=== PATIENT | male | born 1995 | race Caucasian/White ===

== ENCOUNTER → 2016-03-14 | Outpatient (CLI) | payer MEDICAID ==
[~2016-03-14] MED LIST: CATA0.1T; CEFT500T; DEPA250T3; DEPA500T; DEPA500T2; QUET20XRTB; [UNRECOGNIZED DRUG - OTHER]
[2016-03-14 09:34] LABS: BASO % 0.3 % (0.0-1.0); EOS # 0.1 K/mm3 (0.0-0.50); EOS % 1.3 % (0.0-3.0); LARGE UNSTAINED CELL # 0.1 K/mm3 (0.0-0.4); LARGE UNSTAINED CELL % 2.3 % (0.0-4.0); LYMPH # 1.7 K/mm3 (1.5-6.5); LYMPH % 32.9 % (24.0-44.0); MEAN CORPUSCULAR HEMOGLOBIN 32.9 pg (27.0-33.0); MEAN CORPUSCULAR HGB CONC 35.6 g/dl (32.0-36.5); MEAN CORPUSCULAR VOLUME 92.4 fl (80.0-96.0); MONO # 0.5 K/mm3 (0.0-0.8); MONO % 9.4 % (0.0-5.0); NEUTROPHILS # 2.8 K/mm3 (1.8-7.7); PLATELET COUNT, AUTOMATED 223 k/mm3 (150-450); RED CELL DISTRIBUTION WIDTH 12.4 % (11.5-14.5); WHITE BLOOD COUNT 5.2 K/mm3 (4.0-10.0)
[2016-03-14 09:43] LABS: ALBUMIN 3.9 GM/DL (3.2-5.2); ALBUMIN/GLOBULIN RATIO 1.08 (1.00-1.93); ALKALINE PHOSPHATASE 71 U/L (45-117); ALT/SGPT 20 U/L (12-78); ANION GAP 9 MEQ/L (8-16); AST/SGOT 12 U/L (15-37); BILIRUBIN,TOTAL 0.4 MG/DL (0.2-1.0); BLOOD UREA NITROGEN 15 MG/DL (7-18); CALCIUM LEVEL 9.4 MG/DL (8.5-10.1); CARBON DIOXIDE LEVEL 28 MEQ/L (21-32); CHLORIDE LEVEL 105 MEQ/L (98-107); CREATININE FOR GFR 0.74 MG/DL (0.70-1.30); GLOMERULAR FILTRATION RATE > 60.0 (>60); GLUCOSE, FASTING 91 MG/DL (70-105); POTASSIUM SERUM 4.5 MEQ/L (3.5-5.1); SODIUM LEVEL 142 MEQ/L (136-145); TOTAL PROTEIN 7.5 GM/DL (6.4-8.2)
== END ==
LOC: M WUC 08:07
PROVIDERS: ATTEND Physician Assistant
DX: G40.909 Epilepsy, unspecified, not intractable, without status epilepticus (principal)

== ENCOUNTER 2016-05-20 12:25 | Emergency (ER) | payer OTHER, MEDICAID ==
[~2016-05-20] VITALS: Ht 172.7 cm; Wt 111.1 kg
[2016-05-20 12:26] VITALS: BP 148/66
== END 2016-05-20 13:25 | disposition home or self-care (01) ==
LOC: M ED 13:25
DX: Z00.00 Encounter for general adult medical examination without abnormal findings (principal)

== ENCOUNTER → 2016-07-14 | Outpatient (CLI) | payer MEDICAID, OTHER ==
[2016-07-14 07:59] LABS: ALBUMIN 3.5 GM/DL (3.2-5.2); ALKALINE PHOSPHATASE 71 U/L (45-117); ALT/SGPT 21 U/L (12-78); ANION GAP 9 MEQ/L (8-16); AST/SGOT 12 U/L (15-37); BILIRUBIN,TOTAL 0.2 MG/DL (0.2-1.0); BLOOD UREA NITROGEN 16 MG/DL (7-18); CALCIUM LEVEL 7.8 MG/DL (8.5-10.1); CARBON DIOXIDE LEVEL 23 MEQ/L (21-32); CHLORIDE LEVEL 109 MEQ/L (98-107); CREATININE FOR GFR 0.74 MG/DL (0.70-1.30); GLOMERULAR FILTRATION RATE > 60.0 (>60); GLUCOSE, FASTING 96 MG/DL (70-105); POTASSIUM SERUM 4.1 MEQ/L (3.5-5.1); SODIUM LEVEL 141 MEQ/L (136-145)
== END ==
LOC: M LAB 06:47
PROVIDERS: ATTEND Physician Assistant
DX: G40.909 Epilepsy, unspecified, not intractable, without status epilepticus (principal)

== ENCOUNTER 2016-10-01 19:01 | Emergency (ER) | payer MEDICAID ==
[~2016-10-01] VITALS: Ht 172.7 cm; Wt 113.5 kg
[2016-10-01 19:02] VITALS: BP 151/63
[2016-10-01] MEDS ORDERED: COLA100C5 PO (19:15)
[2016-10-01] MEDS ORDERED: CLAR10CA3 PO (19:15)
[2016-10-01] MEDS ORDERED: RISP2TAB32 PO (19:15)
[2016-10-01] MEDS ORDERED: PROAAER10 INH (19:15)
[2016-10-01] MEDS ORDERED: BENZ-52 PO (19:15)
[2016-10-01] MEDS ORDERED: [UNRECOGNIZED DRUG - CODE] MT (19:56)
[2016-10-01] MEDS ORDERED: NAPR500T PO (19:56)
== END 2016-10-01 20:24 | disposition home or self-care (01) ==
LOC: M ED 19:01
DX: S02.5XXA Fracture of tooth (traumatic), initial encounter for closed fracture (principal); G40.909 Epilepsy, unspecified, not intractable, without status epilepticus; J45.909 Unspecified asthma, uncomplicated; Y04.2XXA Assault by strike against or bumped into by another person, initial encounter; Y92.89 Other specified places as the place of occurrence of the external cause; Y99.9 Unspecified external cause status; Y93.9 Activity, unspecified; Z79.899 Other long term (current) drug therapy

== ENCOUNTER → 2016-10-06 | Outpatient (REF) | payer MEDICAID ==
[~2016-10-06] MED LIST changes: +BENZ-52 PO; +CLAR10CA3 PO; +COLA100C5 PO; +NAPR500T PO; +PROAAER10 INH; +RISP2TAB32 PO; +[UNRECOGNIZED DRUG - CODE] MT
== END ==
LOC: M LAB REF 13:07
PROVIDERS: ATTEND Physician Assistant
DX: N39.0 Urinary tract infection, site not specified (principal)

== ENCOUNTER → 2017-05-09 | Outpatient (REF) | payer MEDICAID ==
[2017-05-09 18:08] LABS: APPEARANCE, URINE HAZY (CLEAR); BACTERIA, URINE AUTO 1+ (NEGATIVE); BILIRUBIN, URINE AUTO NEGATIVE (NEGATIVE); BLOOD, URINE BLOOD 3+ (NEGATIVE); COLOR, URINE YELLOW (YELLOW); GLUCOSE, URINE (UA) AUTO NEGATIVE (NEGATIVE); KETONE, URINE AUTO NEGATIVE (NEGATIVE); LEUKOCYTE ESTERASE, URINE AUTO 1+ (NEGATIVE); MUCUS, URINE SMALL (NEGATIVE); NITRITE, URINE AUTO NEGATIVE (NEGATIVE); PROTEIN, URINE AUTO 1+ mg/dL (NEGATIVE); RBC, URINE AUTO TNTC /HPF (0-3); SPECIFIC GRAVITY URINE AUTO 1.018 (1.002-1.035); SQUAMOUS EPITHELIAL CELL UR AU 0 /HPF (0-6); UROBILINOGEN, URINE AUTO 0.2 mg/dL (0.0-2.0); WBC, URINE AUTO 57 /HPF (0-3)
== END ==
LOC: M LAB REF 17:09
DX: N39.0 Urinary tract infection, site not specified (principal)

== ENCOUNTER → 2017-05-10 | Outpatient (CLI) | payer MEDICAID ==
[2017-05-10 14:50] LABS: ALBUMIN/GLOBULIN RATIO 1.18 (1.00-1.93); ALKALINE PHOSPHATASE 63 U/L (45-117); ALT/SGPT 25 U/L (12-78); ANION GAP 11 MEQ/L (8-16); AST/SGOT 18 U/L (7-37); BILIRUBIN,TOTAL 0.4 MG/DL (0.2-1.0); BLOOD UREA NITROGEN 17 MG/DL (7-18); CALCIUM LEVEL 8.2 MG/DL (8.5-10.1); CARBON DIOXIDE LEVEL 24 MEQ/L (21-32); CHLORIDE LEVEL 105 MEQ/L (98-107); CHOLESTEROL LEVEL 157 MG/DL (<200); CHOLESTEROL RISK RATIO 4.757 (<5); CREATININE FOR GFR 0.65 MG/DL (0.70-1.30); FREE T4 0.89 NG/DL (0.76-1.46); GLOMERULAR FILTRATION RATE > 60.0 (>60); GLUCOSE, FASTING 88 MG/DL (70-100); HDL CHOLESTEROL 33 MG/DL (>40); LDL CHOLESTEROL 96.2 MG/DL (<100); NON-HDL-C 124 MG/DL; POTASSIUM SERUM 4.1 MEQ/L (3.5-5.1); SODIUM LEVEL 140 MEQ/L (136-145); TOTAL PROTEIN 7.4 GM/DL (6.4-8.2); TRIGLYCERIDES LEVEL 139 MG/DL (<150)
== END ==
LOC: M SMT 08:06
DX: Z13.220 Encounter for screening for lipoid disorders (principal); E66.01 Morbid (severe) obesity due to excess calories

== ENCOUNTER → 2017-05-23 | Outpatient (REF) | payer MEDICAID ==
[2017-05-23 11:44] LABS: APPEARANCE, URINE CLEAR (CLEAR); BACTERIA, URINE AUTO NEGATIVE (NEGATIVE); BILIRUBIN, URINE AUTO NEGATIVE (NEGATIVE); BLOOD, URINE BLOOD NEGATIVE (NEGATIVE); COLOR, URINE STRAW (YELLOW); GLUCOSE, URINE (UA) AUTO NEGATIVE (NEGATIVE); HEMOGLOBIN 14.6 g/dl (14.0-18.0); KETONE, URINE AUTO NEGATIVE (NEGATIVE); LEUKOCYTE ESTERASE, URINE AUTO NEGATIVE (NEGATIVE); MEAN CORPUSCULAR HEMOGLOBIN 31.5 pg (27.0-33.0); MEAN CORPUSCULAR VOLUME 92.7 fl (80.0-96.0); NITRITE, URINE AUTO NEGATIVE (NEGATIVE); PLATELET COUNT, AUTOMATED 191 10^3/uL (150-450); PROTEIN, URINE AUTO NEGATIVE (NEGATIVE); RBC, URINE AUTO 0 /HPF (0-3); RED BLOOD COUNT 4.64 10^6/uL (4.30-6.10); RED CELL DISTRIBUTION WIDTH 12.5 % (11.5-14.5); SPECIFIC GRAVITY URINE AUTO 1.006 (1.002-1.035); SQUAMOUS EPITHELIAL CELL UR AU 0 /HPF (0-6); UROBILINOGEN, URINE AUTO 0.2 mg/dL (0.0-2.0); WBC, URINE AUTO 1 /HPF (0-3); WHITE BLOOD COUNT 6.3 10^3/uL (4.0-10.0)
[2017-05-23 12:06] LABS: VALPROIC ACID (DEPAKOTE) 101.3 UG/ML (50.0-100.0)
== END ==
LOC: M SFHCPLAZ 08:09
DX: Z51.81 Encounter for therapeutic drug level monitoring (principal); Z79.899 Other long term (current) drug therapy; R31.0 Gross hematuria

== ENCOUNTER → 2017-05-30 | Outpatient (CLI) | payer MEDICAID | LOC: M LAB 06:24 | DX: Z51.81 Encounter for therapeutic drug level monitoring (principal); Z79.899 Other long term (current) drug therapy | CPT/HCPCS: 80164 ==

== ENCOUNTER 2017-08-06 21:07 | Emergency (ER) | payer MEDICAID ==
[2017-08-06 21:56] LABS: BASO % 0.2 % (0.0-1.0); EOS # 0.1 10^3/uL (0.0-0.50); EOS % 1.7 % (0.0-3.0); HEMATOCRIT 38.3 % (42.0-52.0); HEMOGLOBIN 13.5 g/dl (13.5-17.5); IMMATURE GRANULOCYTE % 0.2 % (0-3.0); LYMPH # 2.6 10^3/uL (1.5-6.5); LYMPH % 32.2 % (24.0-44.0); MEAN CORPUSCULAR HEMOGLOBIN 32.4 pg (27.0-33.0); MEAN CORPUSCULAR HGB CONC 35.2 g/dl (32.0-36.5); MEAN CORPUSCULAR VOLUME 91.8 fl (80.0-96.0); MONO # 0.8 10^3/uL (0.0-0.8); NEUTROPHILS # 4.5 10^3/uL (1.8-7.7); NEUTROPHILS % 55.7 % (36.0-66.0); PLATELET COUNT, AUTOMATED 209 10^3/uL (150-450); RED BLOOD COUNT 4.17 10^6/uL (4.30-6.10); RED CELL DISTRIBUTION WIDTH 12.3 % (11.5-14.5); WHITE BLOOD COUNT 8.1 10^3/uL (4.0-10.0)
[2017-08-06 22:08] LABS: ALBUMIN 3.8 GM/DL (3.2-5.2); ALBUMIN/GLOBULIN RATIO 1.15 (1.00-1.93); ALKALINE PHOSPHATASE 65 U/L (45-117); ALT/SGPT 23 U/L (12-78); ANION GAP 9 MEQ/L (8-16); AST/SGOT 18 U/L (7-37); BILIRUBIN,DIRECT < 0.1 MG/DL (0.0-0.2); BILIRUBIN,TOTAL 0.3 MG/DL (0.2-1.0); BLOOD UREA NITROGEN 11 MG/DL (7-18); CALCIUM LEVEL 8.5 MG/DL (8.5-10.1); CARBON DIOXIDE LEVEL 27 MEQ/L (21-32); CHLORIDE LEVEL 105 MEQ/L (98-107); CREATININE FOR GFR 0.89 MG/DL (0.70-1.30); GLOMERULAR FILTRATION RATE > 60.0 (>60); GLUCOSE, FASTING 83 MG/DL (70-100); PHOSPHORUS LEVEL 3.7 MG/DL (2.5-4.9); POTASSIUM SERUM 3.5 MEQ/L (3.5-5.1); SODIUM LEVEL 141 MEQ/L (136-145); TOTAL PROTEIN 7.1 GM/DL (6.4-8.2); VALPROIC ACID (DEPAKOTE) 89.5 UG/ML (50.0-100.0)
[2017-08-06] MEDS: ACETAMINOPHEN TAB 650MG DOSE (2X325MG) PO (22:35)
[2017-08-06 22:45] LABS: AMORPHOUS SEDIMENT RFX SMALL (NEGATIVE); KETONE, URINE AUTO RFX NEGATIVE (NEGATIVE); LEUKOCYTE ESTERASE UR AUTO RFX NEGATIVE (NEGATIVE); NITRITE, URINE AUTO RFX NEGATIVE (NEGATIVE); RBC, URINE AUTO RFX 0 /HPF (0-3); SPECIFIC GRAVITY UR AUTO RFX 1.013 (1.002-1.035); SQUAM EPITHELIAL CELL UR AURFX 0 /HPF (0-6); WBC, URINE AUTO RFX 0 /HPF (0-3)
[2017-08-06 23:08] LABS: AMPHETAMINES LEVEL URINE NEGATIVE (NEGATIVE); BARBITURATES URINE NEGATIVE (NEGATIVE); BENZODIAZEPINES URINE NEGATIVE (NEGATIVE); CANNABINOIDS URINE NEGATIVE (NEGATIVE); COCAINE METABOLITE URINE NEGATIVE (NEGATIVE); METHADONE URINE NEGATIVE (NEGATIVE); OPIATES URINE NEGATIVE (NEGATIVE); PHENCYCLIDINE URINE NEGATIVE (NEGATIVE)
== END 2017-08-06 23:43 | disposition home or self-care (01) ==
LOC: M ED 21:07
DX: G40.909 Epilepsy, unspecified, not intractable, without status epilepticus (principal); J45.909 Unspecified asthma, uncomplicated; F79 Unspecified intellectual disabilities; F63.9 Impulse disorder, unspecified; F84.9 Pervasive developmental disorder, unspecified; Z79.899 Other long term (current) drug therapy
CPT/HCPCS: 83735

== ENCOUNTER → 2017-08-17 | Outpatient (CLI) | payer MEDICAID ==
[2017-08-17 08:33] LABS: VALPROIC ACID (DEPAKOTE) 97.5 UG/ML (50.0-100.0)
== END ==
LOC: M LAB 07:19
DX: Z79.899 Other long term (current) drug therapy (principal)
CPT/HCPCS: 80164

== ENCOUNTER 2018-08-07 17:37 | Emergency (ER) | payer MEDICAID ==
[~2018-08-07] VITALS: Ht 170.2 cm; Wt 121.8 kg
[~2018-08-07 17:37] MED LIST changes: +NAPR-837 PO; -NAPR500T PO; -QUET20XRTB; +SERO200T43
[2018-08-07 18:09] VITALS: BP 140/76
[2018-08-07] MEDS ORDERED: DIVA250T7 PO ×2 (18:33)
[2018-08-07 18:36] LABS: MEAN CORPUSCULAR HEMOGLOBIN 31.7 pg (27.0-33.0); MEAN CORPUSCULAR VOLUME 90.5 fl (80.0-96.0); PLATELET COUNT, AUTOMATED 202 10^3/uL (150-450); RED BLOOD COUNT 4.42 10^6/uL (4.30-6.10); WHITE BLOOD COUNT 7.4 10^3/uL (4.0-10.0)
[2018-08-07] MEDS ORDERED: CALC1TAB63 PO (18:38)
[2018-08-07] MEDS ORDERED: [UNRECOGNIZED DRUG - CODE] TOP (18:38)
[2018-08-07] MEDS ORDERED: TOPI25TA10 PO (18:38)
[2018-08-07] MEDS ORDERED: RISP3TAB3 PO (18:38)
[2018-08-07] MEDS ORDERED: KP K0.02 OU (18:38)
[2018-08-07] MEDS ORDERED: CONC54TA4 PO (18:38)
[2018-08-07 18:59] LABS: ACETAMINOPHEN LEVEL < 2.0 UG/ML (10.0-30.0); ALBUMIN 3.7 GM/DL (3.2-5.2); ALT/SGPT 26 U/L (12-78); BILIRUBIN,DIRECT < 0.1 MG/DL (0.0-0.2); BILIRUBIN,TOTAL 0.2 MG/DL (0.2-1.0); BLOOD UREA NITROGEN 11 MG/DL (7-18); CALCIUM LEVEL 8.2 MG/DL (8.5-10.1); CARBON DIOXIDE LEVEL 23 MEQ/L (21-32); CHLORIDE LEVEL 106 MEQ/L (98-107); CREATININE FOR GFR 0.82 MG/DL (0.70-1.30); ETHYL ALCOHOL (ETHANOL) < 0.003 % (0.000-0.010); GLOMERULAR FILTRATION RATE > 60.0 (>60); GLUCOSE, FASTING 104 MG/DL (70-100); POTASSIUM SERUM 3.7 MEQ/L (3.5-5.1); SALICYLATE LEVEL < 1.7 MG/DL (5.0-30.0); SODIUM LEVEL 139 MEQ/L (136-145); TOTAL PROTEIN 7.5 GM/DL (6.4-8.2)
--- NOTE | 2018-08-07 19:15 | REP ---
RIGHT HAND, FOUR VIEWS: There is no evidence of an acute fracture, dislocation or intrinsic bone disease. IMPRESSION: No fracture or dislocation. Electronically Signed by Osmany Reyna MD 08/12/2018 08:27 A
== END 2018-08-07 19:12 | disposition home or self-care (01) ==
LOC: M ED 17:37
DX: F43.20 Adjustment disorder, unspecified (principal); S60.221A Contusion of right hand, initial encounter; W22.8XXA Striking against or struck by other objects, initial encounter; Y92.89 Other specified places as the place of occurrence of the external cause; J45.909 Unspecified asthma, uncomplicated; F91.3 Oppositional defiant disorder; R56.9 Unspecified convulsions; R41.89 Other symptoms and signs involving cognitive functions and awareness
CPT/HCPCS: 36415; 73130; 80048; 80076; 84443; 85027; 99283; G0480

== ENCOUNTER → 2018-08-08 | Outpatient (CLI) | payer MEDICAID ==
[~2018-08-08] MED LIST changes: +CALC1TAB63 PO; +CONC54TA4 PO; +DIVA250T7 PO; +KP K0.02 OU; +RISP3TAB3 PO; +TOPI25TA10 PO; +[UNRECOGNIZED DRUG - CODE] TOP
[2018-08-08 07:57] LABS: BASO % 0.6 % (0.0-1.0); EOS # 0.1 10^3/uL (0.0-0.50); EOS % 1.4 % (0.0-3.0); HEMATOCRIT 41.9 % (42.0-52.0); HEMOGLOBIN 14.4 g/dl (13.5-17.5); LYMPH # 2.3 10^3/uL (1.5-6.5); MEAN CORPUSCULAR HEMOGLOBIN 32.8 pg (27.0-33.0); MEAN CORPUSCULAR HGB CONC 34.4 g/dl (32.0-36.5); MEAN CORPUSCULAR VOLUME 95.4 fl (80.0-96.0); MONO # 0.9 10^3/uL (0.0-0.8); MONO % 12.6 % (0.0-5.0); NEUTROPHILS # 3.6 10^3/uL (1.8-7.7); PLATELET COUNT, AUTOMATED 200 10^3/uL (150-450); RED BLOOD COUNT 4.39 10^6/uL (4.30-6.10); WHITE BLOOD COUNT 6.9 10^3/uL (4.0-10.0)
[2018-08-08 08:16] LABS: ALBUMIN 3.7 GM/DL (3.2-5.2); ALT/SGPT 24 U/L (12-78); BILIRUBIN,TOTAL 0.3 MG/DL (0.2-1.0); BLOOD UREA NITROGEN 12 MG/DL (7-18); CALCIUM LEVEL 8.9 MG/DL (8.5-10.1); CARBON DIOXIDE LEVEL 29 MEQ/L (21-32); CHLORIDE LEVEL 105 MEQ/L (98-107); CREATININE FOR GFR 0.81 MG/DL (0.70-1.30); GLOMERULAR FILTRATION RATE > 60.0 (>60); GLUCOSE, FASTING 87 MG/DL (70-100); SODIUM LEVEL 140 MEQ/L (136-145); VALPROIC ACID (DEPAKOTE) 77.9 UG/ML (50.0-100.0)
== END ==
LOC: M LAB 07:07
DX: G40.909 Epilepsy, unspecified, not intractable, without status epilepticus (principal)

== ENCOUNTER → 2018-11-19 | Outpatient (REF) | payer MEDICAID ==
[~2018-11-19] MED LIST changes: +KETO0.022 OU; -KP K0.02 OU; +PANT40TA3 PO; +TUMS500C PO
[2018-11-19 10:32] LABS: ALBUMIN 3.9 GM/DL (3.2-5.2); ALT/SGPT 29 U/L (12-78); BILIRUBIN,TOTAL 0.4 MG/DL (0.2-1.0); BLOOD UREA NITROGEN 14 MG/DL (7-18); CALCIUM LEVEL 9.6 MG/DL (8.5-10.1); CARBON DIOXIDE LEVEL 27 MEQ/L (21-32); CHLORIDE LEVEL 103 MEQ/L (98-107); CREATININE FOR GFR 0.85 MG/DL (0.70-1.30); GLOMERULAR FILTRATION RATE > 60.0 (>60); GLUCOSE, FASTING 95 MG/DL (70-100); POTASSIUM SERUM 4.3 MEQ/L (3.5-5.1); SODIUM LEVEL 140 MEQ/L (136-145); TOTAL PROTEIN 7.2 GM/DL (6.4-8.2)
== END ==
LOC: M SFHCPLAZ 08:04
PROVIDERS: ATTEND Nurse Practitioner Family
DX: G40.909 Epilepsy, unspecified, not intractable, without status epilepticus (principal)

== ENCOUNTER 2018-12-29 12:19 | Emergency (ER) | payer MEDICAID ==
[~2018-12-29] VITALS: Ht 160 cm; Wt 121.0 kg
[~2018-12-29 12:19] MED LIST changes: -PANT40TA3 PO; -TUMS500C PO
[2018-12-29 12:23] VITALS: BP 128/83
[2018-12-29] MEDS ORDERED: TUMS500C PO (12:42)
[2018-12-29] MEDS ORDERED: PANT40TA3 PO (12:42)
--- NOTE | 2018-12-29 13:49 | REP ---
LEFT HAND, FOUR VIEWS: There is no evidence of an acute fracture, dislocation or intrinsic bone disease. IMPRESSION: No fracture or dislocation. Electronically Signed by Osmany Reyna MD 12/29/2018 02:40 P
== END 2018-12-29 14:00 | disposition home or self-care (01) ==
LOC: M ED 12:19
DX: F43.0 Acute stress reaction (principal); J45.909 Unspecified asthma, uncomplicated; R56.9 Unspecified convulsions; F90.9 Attention-deficit hyperactivity disorder, unspecified type; F91.3 Oppositional defiant disorder; Z79.899 Other long term (current) drug therapy

== ENCOUNTER 2019-05-04 18:33 | Emergency (ER) | payer MEDICAID ==
[~2019-05-04 18:33] MED LIST changes: -KETO0.022 OU; +KETO5DRO27 OU; +PANT40TA3 PO; +TUMS500C PO
[2019-05-04 18:52] VITALS: BP 144/87
== END 2019-05-04 19:59 | disposition home or self-care (01) ==
LOC: M ED 18:33
DX: F43.0 Acute stress reaction (principal); F09 Unspecified mental disorder due to known physiological condition; Z79.899 Other long term (current) drug therapy

== ENCOUNTER → 2019-05-12 | Outpatient (CLI) | payer MEDICAID ==
[2019-05-12 11:11] LABS: ALBUMIN 3.9 GM/DL (3.2-5.2); ALT/SGPT 30 U/L (12-78); BILIRUBIN,TOTAL 0.3 MG/DL (0.2-1.0); BLOOD UREA NITROGEN 24 MG/DL (7-18); CARBON DIOXIDE LEVEL 27 MEQ/L (21-32); CHLORIDE LEVEL 105 MEQ/L (98-107); GLOMERULAR FILTRATION RATE > 60.0 (>60); GLUCOSE, FASTING 95 MG/DL (70-100); POTASSIUM SERUM 4.2 MEQ/L (3.5-5.1); SODIUM LEVEL 139 MEQ/L (136-145); TOTAL PROTEIN 7.4 GM/DL (6.4-8.2)
== END ==
LOC: M WUC 08:52
PROVIDERS: ATTEND Psychiatry & Neurology Neurology
DX: G40.909 Epilepsy, unspecified, not intractable, without status epilepticus (principal)

== ENCOUNTER 2019-06-20 19:15 | Emergency (ER) | payer MEDICAID ==
[2019-06-20 20:42] VITALS: BP 141/68
== END 2019-06-20 20:43 | disposition home or self-care (01) ==
LOC: M ED 19:15
DX: F09 Unspecified mental disorder due to known physiological condition (principal); F43.20 Adjustment disorder, unspecified; F63.9 Impulse disorder, unspecified; F79 Unspecified intellectual disabilities; G40.909 Epilepsy, unspecified, not intractable, without status epilepticus; Z79.899 Other long term (current) drug therapy

== ENCOUNTER → 2019-09-09 | Outpatient (CLI) | payer MEDICAID ==
[~2019-09-09] MED LIST changes: +PANT40TA29 PO; -PANT40TA3 PO
[2019-09-09 09:47] LABS: BASO % 0.5 % (0.0-1.0); EOS # 0.1 10^3/uL (0.0-0.5); EOS % 1.3 % (0.0-3.0); HEMATOCRIT 40.5 % (42.0-52.0); HEMOGLOBIN 13.7 g/dl (13.5-17.5); LYMPH # 2.2 10^3/uL (1.5-5.0); LYMPH % 36.4 % (24.0-44.0); MEAN CORPUSCULAR HEMOGLOBIN 31.6 pg (27.0-33.0); MEAN CORPUSCULAR HGB CONC 33.8 g/dl (32.0-36.5); MEAN CORPUSCULAR VOLUME 93.5 fl (80.0-96.0); MONO # 0.7 10^3/uL (0.0-0.8); NEUTROPHILS # 2.9 10^3/uL (1.5-8.5); NEUTROPHILS % 49.5 % (36.0-66.0); PLATELET COUNT, AUTOMATED 146 10^3/uL (150-450); RED BLOOD COUNT 4.33 10^6/uL (4.30-6.10); WHITE BLOOD COUNT 5.9 10^3/uL (4.0-10.0)
== END ==
LOC: M WUC 08:29
PROVIDERS: ATTEND Psychiatry & Neurology Neurology
DX: G40.909 Epilepsy, unspecified, not intractable, without status epilepticus (principal)

== ENCOUNTER 2019-11-04 10:58 | Emergency (ER) | payer MEDICAID ==
[~2019-11-04] VITALS: Ht 175.3 cm; Wt 128.0 kg
[2019-11-04 12:18] VITALS: BP 154/89
--- NOTE | 2019-12-03 08:20 | REP ---
LEFT HAND SERIES HISTORY: Trauma with decreased range of motion. FINDINGS: Four views of the left hand were performed. Nondisplaced fracture of the head of the fifth metacarpal. No other acute fracture or dislocation is seen. IMPRESSION: Nondisplaced fracture head of fifth metacarpal. MTDD
== END 2019-11-04 12:25 | disposition home or self-care (01) ==
LOC: M ED 10:58
DX: S62.397A Other fracture of fifth metacarpal bone, left hand, initial encounter for closed fracture (principal); W22.8XXA Striking against or struck by other objects, initial encounter; Y92.9 Unspecified place or not applicable; Y93.9 Activity, unspecified; Y99.9 Unspecified external cause status; Z79.899 Other long term (current) drug therapy

== ENCOUNTER → 2019-12-19 | Outpatient (CLI) | payer MEDICAID ==
[2019-12-19 10:08] LABS: ALBUMIN 3.6 GM/DL (3.2-5.2); ALT/SGPT 29 U/L (12-78); BILIRUBIN,TOTAL 0.3 MG/DL (0.2-1.0); BLOOD UREA NITROGEN 13 MG/DL (7-18); CALCIUM LEVEL 8.7 MG/DL (8.5-10.1); CARBON DIOXIDE LEVEL 26 MEQ/L (21-32); CHLORIDE LEVEL 105 MEQ/L (98-107); CHOLESTEROL LEVEL 188 MG/DL (<200); CHOLESTEROL RISK RATIO 6.064 (<5); CREATININE FOR GFR 0.72 MG/DL (0.70-1.30); GLOMERULAR FILTRATION RATE > 60.0 (>60); GLUCOSE, FASTING 82 MG/DL (70-100); HDL CHOLESTEROL 31 MG/DL (>40); LDL CHOLESTEROL 124 MG/DL (<100); NON-HDL-C 157 MG/DL; POTASSIUM SERUM 4.3 MEQ/L (3.5-5.1); SODIUM LEVEL 138 MEQ/L (136-145); TOTAL 25(OH) VITAMIN D 31.6 NG/ML (30.0-100.0); TOTAL PROTEIN 7.2 GM/DL (6.4-8.2); TRIGLYCERIDES LEVEL 165 MG/DL (<150)
== END ==
LOC: M LAB 07:57
PROVIDERS: ATTEND Nurse Practitioner Family
DX: E66.09 Other obesity due to excess calories (principal); Z13.220 Encounter for screening for lipoid disorders; Z13.21 Encounter for screening for nutritional disorder

== ENCOUNTER 2020-02-20 11:15 | Emergency (ER) | payer MEDICAID ==
[~2020-02-20] VITALS: Ht 170.2 cm; Wt 128.5 kg
[~2020-02-20 11:15] MED LIST changes: +RISP-10 PO; -RISP3TAB3 PO
[2020-02-20 11:17] VITALS: BP 137/82
== END 2020-02-20 12:35 | disposition home or self-care (01) ==
LOC: M ED 11:15
DX: S00.03XA Contusion of scalp, initial encounter (principal); W06.XXXA Fall from bed, initial encounter; J45.909 Unspecified asthma, uncomplicated; K21.9 Gastro-esophageal reflux disease without esophagitis; F90.9 Attention-deficit hyperactivity disorder, unspecified type; F42.9 Obsessive-compulsive disorder, unspecified; Z79.899 Other long term (current) drug therapy; Y92.9 Unspecified place or not applicable; Y93.9 Activity, unspecified; Y99.9 Unspecified external cause status

== ENCOUNTER → 2020-11-16 | Outpatient (CLI) | payer MEDICAID ==
[2020-11-16 12:32] LABS: ALBUMIN 3.4 GM/DL (3.2-5.2); ALT/SGPT 23 U/L (12-78); BILIRUBIN,TOTAL 0.3 MG/DL (0.2-1.0); BLOOD UREA NITROGEN 18 MG/DL (7-18); CALCIUM LEVEL 8.4 MG/DL (8.5-10.1); CARBON DIOXIDE LEVEL 22 MEQ/L (21-32); CHLORIDE LEVEL 105 MEQ/L (98-107); CREATININE FOR GFR 0.81 MG/DL (0.70-1.30); GLOMERULAR FILTRATION RATE > 60.0 (>60); GLUCOSE, FASTING 187 MG/DL (70-100); MAGNESIUM LEVEL 2.1 MG/DL (1.8-2.4); POTASSIUM SERUM 4.3 MEQ/L (3.5-5.1); SODIUM LEVEL 138 MEQ/L (136-145); TOTAL 25(OH) VITAMIN D 41.5 NG/ML (30.0-100.0); TOTAL PROTEIN 6.8 GM/DL (6.4-8.2); VALPROIC ACID (DEPAKOTE) 89.4 UG/ML (50.0-100.0)
== END ==
LOC: M WUC 09:14
PROVIDERS: ATTEND Nurse Practitioner Family
DX: Z51.81 Encounter for therapeutic drug level monitoring (principal); K21.9 Gastro-esophageal reflux disease without esophagitis; R79.89 Other specified abnormal findings of blood chemistry

== ENCOUNTER → 2020-12-02 | Outpatient (CLI) | payer MEDICAID ==
[2020-12-02 18:47] LABS: HEMOGLOBIN A1c 5.4 %
== END ==
LOC: M PLALAB 14:29
PROVIDERS: ATTEND Nurse Practitioner Family
DX: R73.01 Impaired fasting glucose (principal)

== ENCOUNTER 2021-01-09 17:24 | Emergency (ER) | payer MEDICAID ==
--- OUTSIDE RECORDS SUMMARY | 2021-01-09 17:28 | CCD ---
Author Author [facility] Organization [facility] Address Unknown Phone Unavailable Care Team Providers Care [place] [facility]unk[place] Name Role Phone Carmen Prado PROBLEMS Type Condition ICD9-CM Code [id number] Code Onset Dates Condition S tatus W/U Status Risk SNOMED Code Notes Problem Epilepsy G40.909 Active confirmed 63460953 Problem Asthma J45.909 Active confirmed 276988038 Problem MR (mental retardation) F79 Active confirmed 01907512 Problem Disruptive behavior disorder F91.9 Active confirme d 22289293 Problem ADHD (attention deficit hyperactivity disorder) F9 0.9 Active confirmed 602118562 Problem Low HDL (under 40) E78.6 Active confirmed 3 06549887 Problem BMI 40.0-44.9, adult Z68.41 Active confirmed 525284216 Problem Elevated fasting glucose R73.01 Active confirmed 69821709 Problem Morbid obesity E66.01 Active confirmed 90022 6002 Problem Mild intermittent asthma without complication J45. 20 Active confirmed 246448161 Problem Therapeutic drug monitoring Z51.81 Active confirmed 884823807 Problem Gastroesophageal reflux disease, esophagitis pre sence not specified K21.9 Active confirmed 463133614 Problem Low vitamin D level R79.89 Active confirmed 664357839 ALLERGIES No Known Allergies ENCOUNTERS from 1994 to 2020-12-06 Encounter Location Date Provider Diagnosis [facility] [address] [facility] [phone] [place] [address] Nov, Carmen Prado Gastroesophageal reflux dise ase, esophagitis presence not specified K21.9 ; Elevated fasting glucose R73.01 ; Morbid obesity E66.01 and Low vitamin D level R79.89 IMMUNIZATIONS Vaccine Route Administration Date Status Influenza 6mo & up Fluzone Unknown Feb 08, 2016 Admin istered SOCIAL HISTORY Tobacco Use: Social History Observation Description Date Details (start date - stop date) Never Smoker Sex Assigned At : Social History Observation Description Sex Assigned At Unknown Education: Question Answer Notes Level of Education: Not finished High School Audit Question Answer Notes Total Score: 0 Interpretation: Alcohol Education Language: Question Answer Notes Languages spoken: Taiwanese Cheondoism: Question Answer Notes Cheondoism 33 None Sexual Hx: Question Answer Notes Had sex in the last 12 months (vaginal, oral, or anal)? No Have you ever had an STD? No Drug and Alcohol Question Answer Notes Total Score: 0 Interpretation: No problems reported Alcohol Screening: Question Answer Notes Did you have a drink containing alcohol in the past year? No Points 0 Interpretation Negative BMI Care Goal Follow-Up Question Answer Notes Above Normal BMI Follow-Up Giving encouragement to exercise Tobacco Use: Question Answer Notes Are you a: never smoker REASON FOR REFERRAL No Information VITAL SIGNS Weight 288 lbs Nov, Height 66.5 in Nov, BMI 45.78 kg/m2 Nov, Heart Rate 80 /min Nov, Respiratory Rate 20 /min Nov, Temperature 97.8 degrees Fahrenheit Nov, Oximetry 99 Nov, Blood pressure systolic 130 mm Hg Nov, Blood pressure diastolic 80 mm Hg Nov, MEDICATIONS Medication SIG (Take, Route, Frequency, Duration) Notes Start Da te End Date Status ProAir HFA 108 (90 Base) MCG/ACT 2 puffs as needed Inh alation every 4 hrs (MAY DISCONTINUE) Active Topiramate 25 MG TAKE ONE TABLET BY MOUTH TWICE DAILY for 90 Active Benzoyl Peroxide 10 % 1 application to affected ar ea Externally Twice a day to facial acne for 30 Active Tums 500 MG 1 tablet Orally twice daily as needed for heartb urn for 90 day(s) Jun, Active Calcium 600-D 600-400 MG-UNIT 1 tab Orally Daily Active Vitamin D 50 MCG (1999) TAKE ONE TABLET BY MOUTH ONCE DAILY with m eals Active Cogentin 1 mg 1 tablet Orally Twice a day Active Pantoprazole Sodium 40 MG 1 tablet Orally Once a day for 30 days Active Claritin 10 MG 1 tablet Orally Once a day for 90 days Active RisperDAL 3 MG 1 tablet Orally at 4pm and 9pm Active Concerta 54 MG 1 tablet in the morning Orally Once a day Active Depakote ER 250 MG 3 capsules in the morning an d 4 capsules at bedtime Orally Twice a day Active RisperDAL 2 MG 1 tablet Orally Once a day in the morning Active DOK 100 MG TAKE ONE CAPSULE BY MOUTH TWICE DAILY for 30 Active Calcium Carb-Cholecalciferol 600-400 MG-UNIT TAKE ONE TABLET BY MOUTH ONCE DAILY for 60 Active Docusate Sodium 100 MG TAKE ONE CAPSULE BY MOUTH TWICE DAILY for 30 Active Ketotifen Fumarate 0.025 % 1 drop into both eyes Ophth almic Daily as needed for 30 day(s) Nov, Active PROCEDURES No Information RESULTS Component Value Reference Range HEMOGLOBIN A1c Reviewed date:12/02/2020 20:50:06 Interpretation:Normal Performing Lab:[facility]ly [facility], [facility] [address] [facility] [address] [facility] [id number] , ,[place] [address] HEMOGLOBIN A1c 5.4 ESTIMATED AVERAGE GLUCOSE 108 60-110 REASON FOR VISIT 6 Months (Reason: APE) MEDICAL (GENERAL) HISTORY Type Description Date Medical History asthma Medical History epilepsy Medical History mild MR Medical History ADHD Medical History disruptive behavior disorder Medical History morbid obesity Surgical History No Surgical history information Hospitalization History [facility] 2008 Hospitalization History [facility] [phone] Goals Section No Information Health Concerns No Information MEDICAL EQUIPMENT No Information MENTAL STATUS No Information FUNCTIONAL STATUS No Information ASSESSMENTS Encounter Date Diagnosis Assessment Notes Treatment Notes Treatm ent Clinical Notes Nov, Gastroesophageal reflux dise ase, esophagitis presence not specified (ICD-10 - K21.9) take TUMs daily for calcium supplement Nov, Elevated fasting glucose (ICD-10 - R73.01) check HgA1c today. Advised smaller portions and decrease sweets and carbs. Increase exercise Nov, Morbid obesity (ICD-10 - E66.01) diet & exercise reviewed with patient Nov, Low vitamin D level (ICD-10 - R79.89) PLAN OF TREATMENT Medication Medication Name Sig Start Date Stop Date Vitamin D 50 MCG (1999) TAKE ONE TABLET BY MOUTH ONCE DAILY w ith meals Pantoprazole Sodium 40 MG 1 tablet Orally Once a day for 30 days Tums 500 MG 1 tablet Orally twice daily as needed fo r heartburn for 90 day(s) Jun, Calcium 600-D 600-400 MG-UNIT 1 tab Orally Daily Treatment Notes Assessment Notes Clinical Notes Gastroesophageal reflux disease, esophagitis presence not specified take TUMs daily for calcium supplement Elevated fasting glucose check HgA1c today. Advised s maller portions and decrease sweets and carbs. Increase exercise Morbid obesity diet & exercise reviewed with patient Next Appt Details 6 months - transfer care appt Reason: Provider Name:Raina Camp, 2-0 05-31 01:00:00 PM, [address] [place] [address], , [place], [address], Insurance Providers Payer Name Payer Address Payer Phone Insured Name Patient Relati onship to Insured Coverage Start Date Coverage End Date MEDICAID [place] [address] [facility] [id number] [address] [place] self
--- OUTSIDE RECORDS SUMMARY | 2021-01-09 17:28 | CCD ---
Author Author [facility] Organization [facility] Address Unknown Phone Unavailable Care Team Providers Care Prototype Engineer Manager Name Role Phone Fish, [facility] Unavailable Unavailabl e Fish, [facility], PA-C Unavailable Unavailabl e Fish, [facility], PA-C Unavailable Unavailabl e Fish, [facility], PA-C Unavailable Unavailabl e Fish, [facility], PA-C Unavailable Unavailabl e Fish, [facility], PA-C Unavailable Unavailabl e Fish, [facility], PA-C Unavailable Unavailabl e Fish, [facility], PA-C Unavailable Unavailabl e Fish, [facility], PA-C Unavailable Unavailabl e Fish, [facility], PA-C Unavailable Unavailabl e Fish, [facility], PA-C Unavailable Unavailabl e Fish, [facility], PA-C Unavailable Unavailabl e Fish, [facility], PA-C Unavailable Unavailabl e Fish, [facility], PA-C Unavailable Unavailabl e Fish, [facility], PA-C Unavailable Unavailabl e Fish, [facility], PA-C Unavailable Unavailabl e Fish, [facility], PA-C Unavailable Unavailabl e Fish, [facility], PA-C Unavailable Unavailabl e Fish, [facility], PA-C Unavailable Unavailabl e Fish, [facility], PA-C Unavailable Unavailabl e Fish, [facility], PA-C Unavailable Unavailabl e Fish, Cydney [facility], PA-C Unavailable Unavailabl e Fish, Cydney [facility], PA-C Unavailable Unavailabl e Fish, Cydney [facility], PA-C Unavailable Unavailabl e Fish, [facility] Unavailable Unavailabl e Fish, Cydney [facility], PA-C Unavailable Unavailabl e Fish, Cydney [facility], PA-C Unavailable Unavailabl e Fish, Cydney [facility], PA-C Unavailable Unavailabl e Fish, Cydney [facility], PA-C Unavailable Unavailabl e Fish, Cydney [facility], PA-C Unavailable Unavailabl e Fish, Cydney [facility], PA-C Unavailable Unavailabl e Fish, Cydney [facility], PA-C Unavailable Unavailabl e Fish, Cydney [facility], PA-C Unavailable Unavailabl e Fish, Cydney [facility], PA-C Unavailable Unavailabl e Fish, Cydney [facility], PA-C Unavailable Unavailabl e Fish, Cydney [facility], PA-C Unavailable Unavailabl e Doremus, E Jojo PA Unavailable Unavailable Doremus, E Jojo PA Unavailable Unavailable Doremus, E Jojo PA Unavailable Unavailable Doremus, E Jojo PA Unavailable Unavailable Doremus, E Jojo PA Unavailable Unavailable Doremus, E Jojo PA Unavailable Unavailable Doremus, E Jojo PA Unavailable Unavailable Doremus, E Jojo PA Unavailable Unavailable Doremus, E Jojo PA Unavailable Unavailable Doremus, E Jojo PA Unavailable Unavailable Doremus, E Jojo PA Unavailable Unavailable Doremus, E Jojo PA Unavailable Unavailable Doremus, E Jojo PA Unavailable Unavailable Doremus, E Jojo PA Unavailable Unavailable Doremus, E Jojo PA Unavailable Unavailable Doremus, E Jojo PA Unavailable Unavailable Doremus, E Jojo PA Unavailable Unavailable Doremus, E Jojo PA Unavailable Unavailable Doremus, E Jojo PA Unavailable Unavailable Re-disclosure Warning The records that you are about to access may contain information from federally-assisted alcohol or drug abuse programs. If such information is present, then the following federally mandated warning applies: This information has been disclosed to you from records protected by federal confidentiality rules (42 CFR part 2). The federal rules prohibit you from making any further disclosure of this information unless further disclosure is expressly permitted by the written consent of the person to whom it pertains or as otherwise permitted by 42 CFR part 2. A general authorization for the release of medical or other information is NOT sufficient for this purpose. The Federal rules restrict any use of the information to criminally investigate or prosecute any alcohol or drug abuse patient.The records that you are about to access may contain highly sensitive health information, the redisclosure of which is protected by Article 27-F of the [facility] Public Health law. If you continue you may have access to information: Regarding HIV / AIDS; Provided by facilities licensed or operated by the [facility] Office of Mental Health; or Provided by the [facility] Office for People With Developmental Disabilities. If such information is present, then the following [facility] mandated warning applies: This information has been disclosed to you from confidential records which are protected by state law. State law prohibits you from making any further disclosure of this information without the specific written consent of the person to whom it pertains, or as otherwise permitted by law. Any unauthorized further disclosure in violation of state law may result in a fine or penitentiary sentence or both. A general authorization for the release of medical or other information is NOT sufficient authorization for further disc losure. Encounters Encounter Providers Location Date Indications Data Source(s ) [place] [address] [facility] [address] 12/02/2020 12:00:00 AM EDT eCW1 ([facility]) Outpatient 11/01/2020 12:24:00 PM EDT [facility] Primary Care Admission cancelled. Disregard status an d admitted date. Unknown [address] [facility] [place] [address] 11/01/2020 12:00:00 AM EDT eCW1 ([facility]) [place] [address] [facility] [address] 10/18/2020 12:00:00 AM EDT eCW1 ([facility]) [place] [address] [facility] [address] 09/29/2020 12:00:00 AM EDT eCW1 ([facility]) [place] [address] [facility] [address] 09/07/2020 12:00:00 AM EDT eCW1 ([facility]) [place] [address] [facility] [address] 08/25/2020 12:00:00 AM EDT eCW1 ([facility]) [place] [address] [facility] [address] 07/26/2020 12:00:00 AM EDT eCW1 ([facility]) [place] [address] [facility] [address] 05/31/2020 12:00:00 AM EDT eCW1 ([facility]) Out[place] [address] [facility] [address] 05/11/2020 12:00:00 AM EST eCW1 ([facility]) [place] [address] [facility] [address] 05/11/2020 12:00:00 AM EST eCW1 ([facility]) [place] [address] [facility] [address] 05/05/2020 12:00:00 AM EST eCW1 ([facility]) [place] [address] [facility] [address] 05/05/2020 12:00:00 AM EST eCW1 ([facility]) [place] [address] [facility] [address] 05/03/2020 12:00:00 AM EST eCW1 ([facility]) [place] [address] [facility] [address] 03/08/2020 12:00:00 AM EST eCW1 ([facility]) [place] [address] [facility] [address] 01/23/2020 12:00:00 AM EST eCW1 ([facility]) Office Visit Attender: Celina BOURGEOIS PA-C Physical Therapy 12/25/2019 01:00:00 PM EDT [facility] ([facility]) [place] [address] [facility] [address] 12/04/2019 12:00:00 AM EDT eCW1 ([facility]) Office Visit Attender: Celina BOURGEOIS PA-C Physical Therapy 12/03/2019 11:30:00 AM EDT [facility] ([facility]) [facility] [place] [address] [facility] [address] 12/02/2019 12:00:00 AM EDT eCW1 ([facility]) [place] [address] [facility] [address] 12/02/2019 12:00:00 AM EDT eCW1 ([facility]) Office Visit Attender: Jojo DOSS Physical Therapy 11:00:00 AM EDT [facility] ([facility]) Immunizations Vaccine Date Status Description Data Source(s) COVID-19 VACCINE Moderna 05/20/2020 12:00:00 AM EDT completed [facility] Vaccine Series Complete: YESThis Data wa s Submitted to [facility] Via [employer]. COVID-19 VACCINE Moderna 04/22/2020 12:00:00 AM EST completed [facility] Vaccine Series Complete: NOThis Data was Submitted to [facility] [employer]. Medications Medication Brand Name Start Date Product Form Dose Route Admi nistrative Instructions Pharmacy Instructions Status Indications Reaction Description Data Source(s) Vitamin D3 50 MCG (1999 [facility]) Vitamin D3 50 MCG (2000 [facility]) 11/2020 12:00:00 AM EST 1.0 {tablet} active Vitamin D3 50 MCG (1999 [place]) eCW1 ([facility]) Vitamin D3 50 MCG (1999 [place]) Vitamin D3 50 MCG (2000 [place]) 11/2020 12:00:00 AM EST 1.0 {tablet} active Vitamin D3 50 MCG (1999 [place]) eCW1 ([facility]) Vitamin D3 50 MCG (1999 [place]) Vitamin D3 50 MCG (2000 [place]) 11/2020 12:00:00 AM EST 1.0 {tablet} active Vitamin D3 50 MCG (1999 [place]) eCW1 ([facility]) Vitamin D3 50 MCG (1999 [place]) Vitamin D3 50 MCG (1999 [place]) 11/2020 12:00:00 AM EST 1.0 {tablet} active Vitamin D3 50 MCG (1999 [place]) eCW1 ([facility]) Vitamin D3 50 MCG (1999 [place]) Vitamin D3 50 MCG (1999 [place]) 11/2020 12:00:00 AM EST 1.0 {tablet} active Vitamin D3 50 MCG (1999 [place]) eCW1 ([facility]) Vitamin D3 50 MCG (1999 [place]) Vitamin D3 50 MCG (1999 [place]) 11/2020 12:00:00 AM EST 1.0 {tablet} active Vitamin D3 50 MCG (1999 [place]) eCW1 ([facility]) Vitamin D3 50 MCG (1999 [place]) Vitamin D3 50 MCG (1999 [place]) 11/2020 12:00:00 AM EST 1.0 {tablet} active Vitamin D3 50 MCG (1999 [place]) eCW1 ([facility]) Vitamin D3 50 MCG (1999 [place]) Vitamin D3 50 MCG (1999 [place]) 11/2020 12:00:00 AM EST 1.0 {tablet} active Vitamin D3 50 MCG (1999 [place]) eCW1 ([facility]) Insurance Providers Payer name Policy type / Coverage type Policy ID Covered alliance party ID Covered alliance party's relationship to chavez Policy Chavez Plan Information MCAID [id number] Self [id number] EMEDNY [id number] SP [id number] MEDICAID [id number] SP [id number] [facility] [id number] [facility]-Med[facility] [id number] [facility]-Medicaid [id number] ANSI-Medicaid [id number] ANSI-Medicaid [id number] ANSI-Medicaid [id number] ANSI-Medicaid [id number] ANSI-Medicaid [id number] ANSI-Medicaid [id number] ANSI-Medicaid [id number] ANSI-Medicaid [id number] ANSI-Medicaid [id number] ANSI-Medicaid [id number] ANSI-Medicaid [id number] ANS-Medicaid [id number] [employer] [id number] SP [id number] [place] [employer] [id number] SP [id number] [facility] [id number] SP [id number] SELF PAY ONLY UNAVAILABLE UNAV AILABLE MEDICAID [id number] SP [id number] MEDICAID M [id number] S [id number] [place] [id number] SP [id number] D SELF PAY UNAVAILABLE SP UNAVAILA BLE Problems, Conditions, and Diagnoses Code Display Name Description Problem Type Effective Dates Data Source(s) R73.01 [id number] Elevated fasting glucose Problem 12/02/2020 12:00:00 AM EDT eCW1 ([facility]) R79.89 [id number] Low vitamin D level Problem 05/11/2020 12:00 :00 AM EST eCW1 ([facility]) E78.6 [id number] Low HDL (under 40) Problem 05/11/2020 12:00: 00 AM EST eCW1 ([facility]) Surgeries/Procedures Procedure Description Date Indications Data Source(s) RADEX HAND MINIMUM 3 VIEWS 12/25/2019 12:00:00 AM EDT [facility] ([facility] ) RADEX HAND MINIMUM 3 VIEWS 12/03/2019 12:00:00 AM EDT [facility] ([facility] ) APPLICATION CAST ELBOW FINGER SHORT ARM 11/12/2019 12: 00:00 AM EDT [facility] ([facility] ) Results ID Date Data Source [id number] 12/02/2020 12:00:00 AM EDT eCW1 ([facility]) Name Value Range Interpretation Code Description Data Lyssa rce(s) Supporting Document(s) Hemoglobin A1c/Hemoglobin.total in Blood 5.4 HEMOGLOBIN A1c eCW1 ([facility]) Procedure Social History Code Duration Value Status Description Data Source(s ) Smoking 12/02/2020 12:00:00 AM EDT Never Smoker completed Never S moker eCW1 ([facility]) Smoking 05/11/2020 12:00:00 AM EST Never Smoker completed Never S moker eCW1 ([facility]) Smoking 05/11/2020 12:00:00 AM EST Never Smoker completed Never S moker eCW1 ([facility]) Smoking 05/11/2020 12:00:00 AM EST Never Smoker completed Never S moker eCW1 ([facility]) Smoking 05/11/2020 12:00:00 AM EST Never Smoker completed Never S moker eCW1 ([facility]) Smoking 05/11/2020 12:00:00 AM EST Never Smoker completed Never S moker eCW1 ([facility]) Smoking 05/11/2020 12:00:00 AM EST Never Smoker completed Never S moker eCW1 ([facility]) Smoking 05/11/2020 12:00:00 AM EST Never Smoker completed Never S moker eCW1 ([facility]) Smoking 05/11/2020 12:00:00 AM EST Never Smoker completed Never S moker eCW1 ([facility]) Smoking 05/11/2020 12:00:00 AM EST Never Smoker completed Never S moker eCW1 ([facility]) Vital Signs ID Date Data Source UNK Name Value Range Interpretation Code Description Data Source(s) Body weight 288 [lb_av] 288 [lb_av] eCW1 ([facility]) Body height 66.5 [in_i] 66.5 [in_i] eCW1 ([facility]) Heart rate 80 /min 80 /min eCW1 ([facility]) Respiratory rate 20 /min 20 /min eCW1 ([facility]) Body temperature 97.8 [degF] 97.8 [degF] eCW1 ( [facility]) Systolic blood pressure 130 mm[Hg] 130 mm[Hg] e CW1 ([facility]) Body mass index (BMI) [Ratio] 45.78 kg/m2 45.78 kg/m2 eCW1 ([facility]) Diastolic blood pressure 80 mm[Hg] 80 mm[Hg] eCW1 ([facility]) Body weight 280 [lb_av] 280 [lb_av] eCW1 ([facility]) Body height 66.5 [in_i] 66.5 [in_i] eCW1 ([facility]) Body mass index (BMI) [Ratio] 44.51 kg/m2 44.51 kg/m2 eCW1 ([facility]) Heart rate 84 /min 84 /min eCW1 ([facility]) Respiratory rate 20 /min 20 /min eCW1 ([facility]) Body temperature 97.6 [degF] 97.6 [degF] eCW1 ( [facility]) Systolic blood pressure 130 mm[Hg] 130 mm[Hg] e CW1 ([facility]) Diastolic blood pressure 64 mm[Hg] 64 mm[Hg] eCW1 ([facility]) Body temperature 96.8 [degF] 96.8 [degF] MEDENT ([facility]) Body height 66.5 [in_i] 66.5 [in_i] MEDENT ([facility]) 5'6.50" Body weight 178.50 [lb_av] 178.50 [lb_av] MEDEN T ([facility]) Body mass index (BMI) [Ratio] 28.4 kg/m2 28.4 k g/m2 [facility] ([facility]) Patient Treatment Plan of Care Planned Activity Planned Date Details Description Data Source (s) Vitamin D3 50 MCG (1999 [place]) 05/11/2020 12:00:00 AM EST eCW1 ([facility]) Vitamin D3 50 MCG (1999 [place]) 05/11/2020 12:00:00 AM EST eCW1 ([facility]) Vitamin D3 50 MCG (1999 [place]) 05/11/2020 12:00:00 AM EST eCW1 ([facility]) Vitamin D3 50 MCG (1999 [place]) 05/11/2020 12:00:00 AM EST eCW1 ([facility]) Vitamin D3 50 MCG (1999 [place]) 05/11/2020 12:00:00 AM EST eCW1 ([facility]) Vitamin D3 50 MCG (1999 [place]) 05/11/2020 12:00:00 AM EST eCW1 ([facility]) Vitamin D3 50 MCG (1999 [place]) 05/11/2020 12:00:00 AM EST eCW1 ([facility]) Vitamin D3 50 MCG (1999 [place]) 05/11/2020 12:00:00 AM EST eCW1 ([facility])
--- OUTSIDE RECORDS SUMMARY | 2021-01-09 17:28 | CCD ---
Author Author [facility] Organization [facility] Address Unknown Phone Unavailable Care Team Providers Care Mannequin Maker Name Role Phone Agustina Urbina Unavailable PROBLEMS Type Condition ICD9-CM Code MBI31-DT Code Onset Dates Condition S tatus W/U Status Risk SNOMED Code Notes Problem Morbid obesity E66.01 Active confirmed 23605 6002 Problem MR (mental retardation) F79 Active confirmed 46656421 Problem Disruptive behavior disorder F91.9 Active confirme d 07219198 Problem Asthma J45.909 Active confirmed 660967006 Problem Low vitamin D level R79.89 Active confirmed 078440294 Problem BMI 40.0-44.9, adult Z68.41 Active confirmed 810444403 Problem Low HDL (under 40) E78.6 Active confirmed 3 40123388 Problem Epilepsy G40.909 Active confirmed 43295699 Problem ADHD (attention deficit hyperactivity disorder) F9 0.9 Active confirmed 986260502 Problem Mild intermittent asthma without complication J45. 20 Active confirmed 024484563 Problem Therapeutic drug monitoring Z51.81 Active confirmed 630553328 Problem Gastroesophageal reflux disease, esophagitis pre sence not specified K21.9 Active confirmed 516558349 ALLERGIES No Known Allergies ENCOUNTERS from 1994 to 2020-10-18 Encounter Location Date Provider Diagnosis [address] [phone] [place] [address] Oct, Agustina Alejandroaj Low vitamin D level R79.89 IMMUNIZATIONS Vaccine [...] Education Language: Question Answer Notes Languages spoken: Spanish Temple: Question Answer Notes Temple 33 None Sexual Hx: Question Answer Notes [...] REASON FOR REFERRAL No Information VITAL SIGNS No information MEDICATIONS Medication SIG (Take, Route, Frequency, Duration) Notes Start Da te End Date Status Vitamin D3 50 MCG (1999) 1 tablet Orally Once a day with meal for 30 day(s) May, Active Topamax 25 MG 1 tablet Orally Twice a day for 90 day(s) Active Calcium 600-D 600-400 MG-UNIT 1 tab Orally Daily for 90 days Active ProAir HFA 108 (90 Base) MCG/ACT 2 puffs as needed Inh alation every 4 hrs (MAY DISCONTINUE) Active Pantoprazole Sodium 40 MG 1 tablet Orally Once a day Active Depakote ER 250 MG 3 capsules in the morning an d 4 capsules at bedtime Orally Twice a day Active Topiramate 25 MG TAKE ONE TABLET BY MOUTH TWICE DAILY for 90 Active Claritin 10 MG 1 tablet Orally Once a day for 90 days Active Concerta 54 MG 1 tablet in the morning Orally Once a day Active DOK 100 MG TAKE ONE CAPSULE BY MOUTH TWICE DAILY for 30 Active RisperDAL 2 MG 1 tablet Orally Once a day in the morning Active Benzoyl Peroxide 10 % 1 application to affected ar ea Externally Twice a day to facial acne for 30 Active Colace 100 MG 1 capsule Orally Twice a day for 30 Active Tums 500 MG 1 tablet Orally twice daily as needed for heartb urn for 90 day(s) Jun, Active RisperDAL 3 MG 1 tablet Orally at 4pm and 9pm Active Calcium Carb-Cholecalciferol 600-400 MG-UNIT TAKE ONE TABLET BY MOUTH ONCE DAILY for 60 Active Ketotifen Fumarate 0.025 % 1 drop into both eyes Ophth almic Daily as needed for 30 day(s) Nov, Active Cogentin 1 mg 1 tablet Orally Twice a day Active PROCEDURES No Information RESULTS No Results REASON FOR VISIT refills MEDICAL (GENERAL) HISTORY Type Description Date Medical History asthma Medical History epilepsy Medical History mild MR Medical History ADHD Medical History disruptive behavior disorder Surgical History No Surgical history information Hospitalization History [facility] 2008 Hospitalization History [facility] 1616-0886 Goals Section No Information Health Concerns No Information MEDICAL EQUIPMENT No Information MENTAL STATUS No Information FUNCTIONAL STATUS No Information ASSESSMENTS Encounter Date Diagnosis Assessment Notes Treatment Notes Treatm ent Clinical Notes Oct, Low vitamin D level (ICD-10 - R79.89) PLAN OF TREATMENT Medication Medication Name Sig Start Date Stop Date Claritin 10 MG 1 tablet Orally Once a day for 90 days Calcium Carb-Cholecalciferol 600-400 MG-UNIT TAKE ONE TABLET BY MOUTH ONCE DAILY for 60 ProAir HFA 108 (90 Base) MCG/ACT 2 puffs as needed Inh alation every 4 hrs (MAY DISCONTINUE) Benzoyl Peroxide 10 % 1 application to affected ar ea Externally Twice a day to facial acne for 30 Calcium 600-D 600-400 MG-UNIT 1 tab Orally Daily for 90 days Topamax 25 MG 1 tablet Orally Twice a day for 90 day(s) Colace 100 MG 1 capsule Orally Twice a day for 30 Pantoprazole Sodium 40 MG 1 tablet Orally Once a day Vitamin D3 50 MCG (2000 [facility]) 1 tablet Orally Once a day with meal for 30 day(s) May, Next Appt Details Provider Name:Carmen Prado, 2020-12-02 01:4 5:00 PM, [address] [facility], , [place], [address], Insurance Providers Payer Name Payer Address Payer Phone Insured Name Patient Relati onship to Insured Coverage Start Date Coverage End Date MEDICAID [employer] [address] [facility] [id number] [place] self
--- OUTSIDE RECORDS SUMMARY | 2021-01-09 17:28 | CCD ---
Author Author [facility] Organization [facility] Address Unknown Phone Unavailable Care Team Providers Care Life Skills Educator Name Role Phone Johan Carmen Marrero PROBLEMS Type Condition ICD9-CM Code VLY21-WM Code Onset Dates Condition S tatus W/U Status Risk SNOMED Code Notes Problem Morbid obesity E66.01 Active confirmed 39063 6002 Problem MR (mental retardation) F79 Active confirmed 40981686 Problem Disruptive behavior disorder F91.9 Active confirme d 66477690 Problem Asthma J45.909 Active confirmed 086703837 Problem Low vitamin D level R79.89 Active confirmed 799243694 Problem BMI 40.0-44.9, adult Z68.41 Active confirmed 466942375 Problem Low HDL (under 40) E78.6 Active confirmed 3 79711940 Problem Epilepsy G40.909 Active confirmed 17093737 Problem ADHD (attention deficit hyperactivity disorder) F9 0.9 Active confirmed 164563643 Problem Mild intermittent asthma without complication J45. 20 Active confirmed 413623948 Problem Therapeutic drug monitoring Z51.81 Active confirmed 078604748 Problem Gastroesophageal reflux disease, esophagitis pre sence not specified K21.9 Active confirmed 987629054 ALLERGIES No Known Allergies ENCOUNTERS from 1994 to 2020-11-02 Encounter Location Date Provider Diagnosis [address] [phone] [place] [address] Oct, Carmen Prado Gastroesophageal reflux dise ase, esophagitis presence not specified K21.9 IMMUNIZATIONS Vaccine Route Administration Date Status Influenza [...] Education Language: Question Answer Notes Languages spoken: Kyrgyz Yazidism: Question Answer Notes Yazidism 33 None Sexual Hx: Question Answer Notes [...] Notes Start Da te End Date Status Cogentin 1 mg 1 tablet Orally Twice a day Active Docusate Sodium 100 MG TAKE ONE CAPSULE BY MOUTH TWICE DAILY for 30 Active Calcium 600-D 600-400 MG-UNIT 1 tab Orally Daily for 90 days Active Tums 500 MG 1 tablet Orally twice daily as needed for heartb urn for 90 day(s) Jun, Active Topamax 25 MG 1 tablet Orally Twice a day for 90 day(s) Active Claritin 10 MG 1 tablet Orally Once a day for 90 days Active Concerta 54 MG 1 tablet in the morning Orally Once a day Active Topiramate 25 MG TAKE ONE TABLET BY MOUTH TWICE DAILY for 90 Active Pantoprazole Sodium 40 MG 1 tablet Orally Once a day for 30 days Active ProAir HFA 108 (90 Base) MCG/ACT 2 puffs as needed Inh alation every 4 hrs (MAY DISCONTINUE) Active Vitamin D 50 MCG (2000 UT) TAKE ONE TABLET BY MOUTH ON CE DAILY with meals for 60 Active Depakote ER 250 MG 3 capsules in the morning an d 4 capsules at bedtime Orally Twice a day Active DOK 100 MG TAKE ONE CAPSULE BY MOUTH TWICE DAILY for 30 Active Ketotifen Fumarate 0.025 % 1 drop into both eyes Ophth almic Daily as needed for 30 day(s) Nov, Active RisperDAL 2 MG 1 tablet Orally Once a day in the morning Active Calcium Carb-Cholecalciferol 600-400 MG-UNIT TAKE ONE TABLET BY MOUTH ONCE DAILY for 60 Active Benzoyl Peroxide 10 % 1 application to affected ar ea Externally Twice a day to facial acne for 30 Active RisperDAL 3 MG 1 tablet Orally at 4pm and 9pm Active PROCEDURES No Information RESULTS No Results REASON FOR VISIT pantoprazole MEDICAL (GENERAL) HISTORY Type Description Date Medical History asthma Medical History epilepsy Medical History mild MR Medical History ADHD Medical History disruptive behavior disorder Surgical History No Surgical history information Hospitalization History [facility] 2008 Hospitalization History [facility] [phone] Goals Section No Information Health Concerns No Information MEDICAL EQUIPMENT No Information MENTAL STATUS No Information FUNCTIONAL STATUS No Information ASSESSMENTS Encounter Date Diagnosis Assessment Notes Treatment Notes Treatm ent Clinical Notes Oct, Gastroesophageal reflux dise ase, esophagitis presence not specified (ICD-10 - K21.9) PLAN OF TREATMENT Medication Medication Name Sig Start Date Stop Date Pantoprazole Sodium 40 MG 1 tablet Orally Once a day for 30 days Calcium Carb-Cholecalciferol 600-400 MG-UNIT TAKE ONE TABLET BY MOUTH ONCE DAILY for 60 Benzoyl Peroxide 10 % 1 application to affected ar ea Externally Twice a day to facial acne for 30 Claritin 10 MG 1 tablet Orally Once a day for 90 days Calcium 600-D 600-400 MG-UNIT 1 tab Orally Daily for 90 days ProAir HFA 108 (90 Base) MCG/ACT 2 puffs as needed Inh alation every 4 hrs (MAY DISCONTINUE) Vitamin D 50 MCG (2000 UT) TAKE ONE TABLET BY MOUTH ON CE DAILY with meals for 60 Topamax 25 MG 1 tablet Orally Twice a day for 90 day(s) Docusate Sodium 100 MG TAKE ONE CAPSULE BY MOUTH TWICE DAILY for 30 Next Appt Details Provider Name:Carmen Prado, 2020-12-02 01:4 5:00 PM, [address] [facility], , [place], [address], Insurance Providers Payer Name Payer Address Payer Phone Insured Name Patient Relati onship to Insured Coverage Start Date Coverage End Date MEDICAID [employer] [address] [facility] [id number] [place] self
[2021-01-09 18:15] LABS: HEMATOCRIT 40.4 % (42.0-52.0); HEMOGLOBIN 13.8 g/dl (13.5-17.5); MEAN CORPUSCULAR HEMOGLOBIN 31.4 pg (27.0-33.0); MEAN CORPUSCULAR HGB CONC 34.2 g/dl (32.0-36.5); MEAN CORPUSCULAR VOLUME 91.8 fl (80.0-96.0); PLATELET COUNT, AUTOMATED 206 10^3/uL (150-450); WHITE BLOOD COUNT 8.2 10^3/uL (4.0-10.0)
[2021-01-09 18:51] LABS: ACETAMINOPHEN LEVEL < 2.0 UG/ML (10.0-30.0); ALBUMIN 3.9 GM/DL (3.2-5.2); ALT/SGPT 30 U/L (12-78); BILIRUBIN,DIRECT < 0.1 MG/DL (0.0-0.2); BILIRUBIN,TOTAL 0.2 MG/DL (0.2-1.0); BLOOD UREA NITROGEN 19 MG/DL (7-18); CALCIUM LEVEL 9.4 MG/DL (8.5-10.1); CARBON DIOXIDE LEVEL 24 MEQ/L (21-32); CHLORIDE LEVEL 104 MEQ/L (98-107); CREATININE FOR GFR 0.88 MG/DL (0.70-1.30); ETHYL ALCOHOL (ETHANOL) < 0.003 % (0.000-0.010); GLOMERULAR FILTRATION RATE > 60.0 (>60); GLUCOSE, FASTING 130 MG/DL (70-100); POTASSIUM SERUM 4.2 MEQ/L (3.5-5.1); SALICYLATE LEVEL < 1.7 MG/DL (5.0-30.0); SODIUM LEVEL 137 MEQ/L (136-145); THYROID STIMULATING HORMONE 0.959 uIU/ML (0.358-3.740); TOTAL PROTEIN 7.5 GM/DL (6.4-8.2); VALPROIC ACID (DEPAKOTE) 76.1 UG/ML (50.0-100.0)
[2021-01-09] MEDS ORDERED: D3 S1CAP3 PO (18:56)
[2021-01-09] MEDS ORDERED: QUET50TA4 PO (18:56)
[2021-01-09] MEDS ORDERED: HOME MED LIST COMPLETE! XX SCH (19:00)
[2021-01-09 19:36] LABS: AMPHETAMINES LEVEL URINE NEGATIVE (NEGATIVE); BARBITURATES URINE NEGATIVE (NEGATIVE); BENZODIAZEPINES URINE NEGATIVE (NEGATIVE); CANNABINOIDS URINE NEGATIVE (NEGATIVE); COCAINE METABOLITE URINE NEGATIVE (NEGATIVE); METHADONE URINE NEGATIVE (NEGATIVE); OPIATES URINE NEGATIVE (NEGATIVE); PHENCYCLIDINE URINE NEGATIVE (NEGATIVE)
[2021-01-09 21:06] VITALS: BP 156/81
--- OUTSIDE RECORDS SUMMARY | 2021-01-09 22:33 | CCD ---
Author Author [facility] Organization [facility] Address Unknown Phone Unavailable Care Team Providers Care Scientific Director Name Role Phone Fish, [facility] Unavailable Unavailabl e Fish, [facility], PA-C Unavailable Unavailabl e Fish, [facility], PA-C Unavailable Unavailabl e Fish, [facility], PA-C Unavailable Unavailabl e Fish, [facility], PA-C Unavailable Unavailabl e Fish, [facility], PA-C Unavailable Unavailabl e Fish, [facility], PA-C Unavailable Unavailabl e Fish, [facility], PA-C Unavailable Unavailabl e Fish, [facility], PA-C Unavailable Unavailabl e Fish, [facility], PA-C Unavailable Unavailabl e Fish, [facility], PA-C Unavailable Unavailabl e Fish, [facility], PA-C Unavailable Unavailabl e Fish, [facility], PA-C Unavailable Unavailabl e Fish, [facility], PA-C Unavailable Unavailabl e Fish, [facility], PA-C Unavailable Unavailabl e Fish, [facility], PA-C Unavailable Unavailabl e Fish, [facility], PA-C Unavailable Unavailabl e Fish, [facility], PA-C Unavailable Unavailabl e Fish, [facility], PA-C Unavailable Unavailabl e Fish, [facility], PA-C Unavailable Unavailabl e Fish, [facility], PA-C Unavailable Unavailabl e Fish, Cydney [facility], PA-C Unavailable Unavailabl e Fish, Cydney [facility], PA-C Unavailable Unavailabl e Fish, Cydney [facility], PA-C Unavailable Unavailabl e Fish, [facility] Unavailable Unavailabl e Fish, Cydney [facility], PA-C Unavailable Unavailabl e Fish, Cydney [facility], PA-C Unavailable Unavailabl e Fish, Cydney [facility], PA-C Unavailable Unavailabl e Fish, Cydney [facility], PA-C Unavailable Unavailabl e Fish, Cydney [facility], PA-C Unavailable Unavailabl e Fish, Cydney [facility], PA-C Unavailable Unavailabl e Fish, Cydney [facility], PA-C Unavailable Unavailabl e Fish, Cydney [facility], PA-C Unavailable Unavailabl e Fish, Cydney [facility], PA-C Unavailable Unavailabl e Fish, Cydney [facility], PA-C Unavailable Unavailabl e Fish, Cydney [facility], PA-C Unavailable Unavailabl e [place], E Jojo [...] is protected by Article 27-F of the [facility] Public Health law. If you continue you may have access to information: Regarding HIV / AIDS; Provided by facilities licensed or operated by the [facility] Office of Mental Health; or Provided by the [facility] Office for People With Developmental Disabilities. If such information is present, then the following [facility] mandated warning applies: This information has [...] law may result in a fine or alf sentence or both. A general authorization for the release of medical or other information is NOT sufficient authorization for further disc losure. Encounters Encounter Providers Location Date Indications Data Source(s ) [place] [address] [facility] [address] 12/02/2020 12:00:00 AM EDT eCW1 ([facility]) Outpatient 11/01/2020 12:24:00 PM EDT [facility] Primary Care Admission cancelled. Disregard status an d admitted date. [place] [address] [facility] [place] [address] 11/01/2020 12:00:00 AM EDT eCW1 ([facility]) [place] [address] [facility] [address] 10/18/2020 12:00:00 AM EDT eCW1 ([facility]) [place] [address] [facility] [address] 09/29/2020 12:00:00 AM EDT eCW1 ([facility]) [place] [address] [facility] [address] 09/07/2020 12:00:00 AM EDT eCW1 ([facility]) [place] [address] [facility] [address] 08/25/2020 12:00:00 AM EDT eCW1 ([facility]) [place] [address] [facility] [address] 07/26/2020 12:00:00 AM EDT eCW1 ([facility]) [place] [address] [facility] [address] 05/31/2020 12:00:00 AM EDT eCW1 ([facility]) [place] [address] [facility] [address] 05/11/2020 12:00:00 AM EST eCW1 ([facility]) [place] [address] [facility] [address] 05/11/2020 12:00:00 AM EST eCW1 ([facility]) [place] [address] [facility] [address] 05/05/2020 12:00:00 AM EST eCW1 ([facility]) [place] [address] [facility] [address] 05/05/2020 12:00:00 AM EST eCW1 ([facility]) [place] [address] [facility] [address] 05/03/2020 12:00:00 AM EST eCW1 ([facility]) [place] [address] [facility] [address] 03/08/2020 12:00:00 AM EST eCW1 ([facility]) [place] [address] [facility] [address] 01/23/2020 12:00:00 AM EST eCW1 ([facility]) Office Visit Attender: Celina BOURGEOIS PA-C Physical Therapy 12/25/2019 01:00:00 PM EDT [facility] ([facility]) [place] [address] [facility] [address] 12/04/2019 12:00:00 AM EDT eCW1 ([facility]) Office Visit Attender: Celina BOURGEOIS PA-C Physical Therapy 12/03/2019 11:30:00 AM EDT [facility] ([facility]) [facility] [place] [address] [facility] [address] 12/02/2019 12:00:00 AM EDT eCW1 ([facility]) [place] [address] [facility] [address] 12/02/2019 12:00:00 AM EDT eCW1 ([facility]) Office Visit Attender: Jojo DOSS Physical Therapy 11:00:00 AM EDT MEDENT ([facility]) Immunizations Vaccine Date Status Description Data Source(s) COVID-19 VACCINE Moderna 05/20/2020 12:00:00 AM EDT completed [facility] Vaccine Series Complete: YESThis Data wa s Submitted to [facility]. COVID-19 VACCINE Moderna 04/22/2020 12:00:00 AM EST completed [facility] Vaccine Series Complete: NOThis Data was Submitted to [facility]. Medications Medication Brand Name Start Date Product Form Dose Route Admi nistrative Instructions Pharmacy Instructions Status Indications Reaction Description Data Source(s) Vitamin D3 50 MCG (1999 UT) Vitamin D3 50 MCG (2000 UT) 11/2020 12:00:00 AM EST 1.0 {tablet} active Vitamin D3 50 MCG (1999 UT) eCW1 ([facility]) Vitamin D3 50 MCG (1999 UT) Vitamin D3 50 MCG (2000 UT) 11/2020 12:00:00 AM EST 1.0 {tablet} active Vitamin D3 50 MCG (1999 UT) eCW1 ([facility]) Vitamin D3 50 MCG (1999 UT) Vitamin D3 50 MCG (2000 UT) 11/2020 12:00:00 AM EST 1.0 {tablet} active Vitamin D3 50 MCG (1999 UT) eCW1 ([facility]) Vitamin D3 50 MCG (1999 UT) Vitamin D3 50 MCG (1999 UT) 11/2020 12:00:00 AM EST 1.0 {tablet} active Vitamin D3 50 MCG (1999 UT) eCW1 ([facility]) Vitamin D3 50 MCG (1999 UT) Vitamin D3 50 MCG (1999 UT) 11/2020 12:00:00 AM EST 1.0 {tablet} active Vitamin D3 50 MCG (1999 UT) eCW1 ([facility]) Vitamin D3 50 MCG (1999 UT) Vitamin D3 50 MCG (1999 UT) 11/2020 12:00:00 AM EST 1.0 {tablet} active Vitamin D3 50 MCG (1999 UT) eCW1 ([facility]) Vitamin D3 50 MCG (1999 UT) Vitamin D3 50 MCG (1999 UT) 11/2020 12:00:00 AM EST 1.0 {tablet} active Vitamin D3 50 MCG (1999 UT) eCW1 ([facility]) Vitamin D3 50 MCG (1999 UT) Vitamin D3 50 MCG (1999 UT) 11/2020 12:00:00 AM EST 1.0 {tablet} active Vitamin D3 50 MCG (1999 UT) eCW1 ([facility]) Insurance Providers Payer name Policy type / Coverage type Policy ID Covered constitution party ID Covered constitution party's relationship to chavez Policy Chavez Plan Information MCAID [id number] Self [id number] [place] [id number] SP [id number] MEDICAID [id number] SP [id number] [facility] [id number] [facility]-Medicaid [id number] [facility]-Medicaid [id number] ANSI-Medicaid [id number] ANSI-Medicaid [id number] ANSI-Medicaid [id number] ANSI-Medicaid [id number] ANSI-Medicaid [id number] ANSI-Medicaid [id number] ANSI-Medicaid [id number] ANSI-Medicaid [id number] ANSI-Medicaid [id number] ANSI-Medicaid [id number] ANSI-Medicaid [id number] ANS-Medicaid [id number] [place] [employer] [id number] SP [id number] [place] [employer] [id number] SP [id number] [facility] [id number] SP [id number] SELF PAY ONLY UNAVAILABLE UNAV AILABLE MEDICAID [id number] SP [id number] [place]ICA[place] M [id number] S [id number] [id number] SP [id number] D SELF PAY UNAVAILABLE SP UNAVAILA BLE Problems, Conditions, and Diagnoses Code Display Name Description Problem Type Effective Dates Data Source(s) R73.01 [id number] Elevated fasting glucose Problem 12/02/2020 12:00:00 AM EDT eCW1 ([facility]) R79.89 [id number] Low vitamin D level Problem 05/11/2020 12:00 :00 AM EST eCW1 ([facility]) E78.6 [id number] Low HDL (under 40) Problem 05/11/2020 12:00: 00 AM EST eCW1 ([facility]) Surgeries/Procedures Procedure Description Date Indications Data Source(s) RADEX HAND MINIMUM 3 VIEWS 12/25/2019 12:00:00 AM EDT [facility] ([facility] RADEX HAND MINIMUM 3 VIEWS 12/03/2019 12:00:00 AM EDT [facility] ([facility] ) APPLICATION CAST ELBOW FINGER SHORT ARM 11/12/2019 12: 00:00 AM EDT [facility] ([facility] ) Results ID Date Data Source [id number] 12/02/2020 12:00:00 AM EDT eCW1 ([facility]) Name Value Range Interpretation Code Description Data Lyssa rce(s) Supporting Document(s) Hemoglobin A1c/Hemoglobin.total in Blood 5.4 HEMOGLOBIN A1c eCW1 ([facility]) Procedure Social History Code Duration Value Status Description Data Source(s ) Smoking 12/02/2020 12:00:00 AM EDT Never Smoker completed Never S moker eCW1 ([facility]) Smoking 05/11/2020 12:00:00 AM EST Never Smoker completed Never S moker eCW1 ([facility]) Smoking 05/11/2020 12:00:00 AM EST Never Smoker completed Never S moker eCW1 ([facility]) Smoking 05/11/2020 12:00:00 AM EST Never Smoker completed Never S moker eCW1 ([facility]) Smoking 05/11/2020 12:00:00 AM EST Never Smoker completed Never S moker eCW1 ([facility]) Smoking 05/11/2020 12:00:00 AM EST Never Smoker completed Never S moker eCW1 ([facility]) Smoking 05/11/2020 12:00:00 AM EST Never Smoker completed Never S moker eCW1 ([facility]) Smoking 05/11/2020 12:00:00 AM EST Never Smoker completed Never S moker eCW1 ([facility]) Smoking 05/11/2020 12:00:00 AM EST Never Smoker completed Never S moker eCW1 ([facility]) Smoking 05/11/2020 12:00:00 AM EST Never Smoker completed Never S moker eCW1 ([facility]) Vital Signs ID Date Data Source UNK Name Value Range Interpretation Code Description Data Source(s) Heart rate 80 /min 80 /min eCW1 ([facility]) Body weight 288 [lb_av] 288 [lb_av] eCW1 ([facility]) Body height 66.5 [in_i] 66.5 [in_i] eCW1 ([facility]) Body mass index (BMI) [Ratio] 45.78 kg/m2 45.78 kg/m2 [facility] ([facility]) Respiratory rate 20 /min 20 /min eCW1 ([facility]) Body temperature 97.8 [degF] 97.8 [degF] eCW1 ( [facility]) Systolic blood pressure 130 mm[Hg] 130 mm[Hg] e CW1 ([facility]) Diastolic blood pressure 80 mm[Hg] 80 mm[Hg] eCW1 ([facility]) Body weight 280 [lb_av] 280 [lb_av] eCW1 ([facility]) Body height 66.5 [in_i] 66.5 [in_i] eCW1 ([facility]) Body mass index (BMI) [Ratio] 44.51 kg/m2 44.51 kg/m2 eCW1 ([facility]) Heart rate 84 /min 84 /min eCW1 ([facility]) Respiratory rate 20 /min 20 /min eCW1 ([facility]) Body temperature 97.6 [degF] 97.6 [degF] eCW1 ( [facility]) Systolic blood pressure 130 mm[Hg] 130 mm[Hg] e CW1 ([facility]) Diastolic blood pressure 64 mm[Hg] 64 mm[Hg] eCW1 ([facility]) Body temperature 96.8 [degF] 96.8 [degF] MEDENT ([facility]) Body height 66.5 [in_i] 66.5 [in_i] MEDENT ([facility]) 5'6.50" Body weight 178.50 [lb_av] 178.50 [lb_av] MEDEN T ([facility]) Body mass index (BMI) [Ratio] 28.4 kg/m2 28.4 k g/m2 MEDENT ([facility]) Patient Treatment Plan of Care Planned Activity Planned Date Details Description Data Source (s) Vitamin D3 50 MCG (1999 UT) 05/11/2020 12:00:00 AM EST eCW1 ([facility]) Vitamin D3 50 MCG (1999 UT) 05/11/2020 12:00:00 AM EST eCW1 ([facility]) Vitamin D3 50 MCG (1999 UT) 05/11/2020 12:00:00 AM EST eCW1 ([facility]) Vitamin D3 50 MCG (1999 UT) 05/11/2020 12:00:00 AM EST eCW1 ([facility]) Vitamin D3 50 MCG (1999 UT) 05/11/2020 12:00:00 AM EST eCW1 ([facility]) Vitamin D3 50 MCG (1999 UT) 05/11/2020 12:00:00 AM EST eCW1 ([facility]) Vitamin D3 50 MCG (1999 UT) 05/11/2020 12:00:00 AM EST eCW1 ([facility]) Vitamin D3 50 MCG (1999 UT) 05/11/2020 12:00:00 AM EST eCW1 ([facility])
== END 2021-01-09 21:16 | disposition home or self-care (01) ==
LOC: M ED 17:24
DX: F43.20 Adjustment disorder, unspecified (principal); J45.909 Unspecified asthma, uncomplicated; F63.81 Intermittent explosive disorder; F63.9 Impulse disorder, unspecified; F91.8 Other conduct disorders; Z79.899 Other long term (current) drug therapy

== ENCOUNTER → 2021-06-30 | Outpatient (CLI) | payer MEDICAID ==
[~2021-06-30] MED LIST changes: +D3 S1CAP3 PO; +QUET50TA4 PO
[2021-06-30 15:15] LABS: BASO % 0.4 % (0.0-1.0); EOS # 0.1 10^3/uL (0.0-0.5); HEMATOCRIT 39.1 % (42.0-52.0); HEMOGLOBIN 13.4 g/dl (13.5-17.5); LYMPH # 2.4 10^3/uL (1.5-5.0); LYMPH % 33.2 % (24.0-44.0); MEAN CORPUSCULAR HEMOGLOBIN 31.2 pg (27.0-33.0); MEAN CORPUSCULAR HGB CONC 34.3 g/dl (32.0-36.5); MEAN CORPUSCULAR VOLUME 91.1 fl (80.0-96.0); MONO # 0.8 10^3/uL (0.0-0.8); MONO % 11.5 % (2.0-8.0); NEUTROPHILS # 3.9 10^3/uL (1.5-8.5); NEUTROPHILS % 53.4 % (36.0-66.0); PLATELET COUNT, AUTOMATED 210 10^3/uL (150-450); RED BLOOD COUNT 4.29 10^6/uL (4.30-6.10); WHITE BLOOD COUNT 7.3 10^3/uL (4.0-10.0)
[2021-06-30 15:49] LABS: ALBUMIN 3.7 GM/DL (3.2-5.2); ALT/SGPT 32 U/L (12-78); BILIRUBIN,TOTAL 0.2 MG/DL (0.2-1.0); BLOOD UREA NITROGEN 20 MG/DL (7-18); CALCIUM LEVEL 9.1 MG/DL (8.5-10.1); CARBON DIOXIDE LEVEL 27 MEQ/L (21-32); CHLORIDE LEVEL 105 MEQ/L (98-107); CHOLESTEROL LEVEL 177 MG/DL (<200); CHOLESTEROL RISK RATIO 5.363 (<5); CREATININE FOR GFR 0.73 MG/DL (0.70-1.30); GLOMERULAR FILTRATION RATE > 60.0 (>60); GLUCOSE, FASTING 94 MG/DL (70-100); HDL CHOLESTEROL 33 MG/DL (>40); LDL CHOLESTEROL 113 MG/DL (<100); NON-HDL-C 144 MG/DL; POTASSIUM SERUM 4.4 MEQ/L (3.5-5.1); SODIUM LEVEL 139 MEQ/L (136-145); TOTAL PROTEIN 7.1 GM/DL (6.4-8.2); TRIGLYCERIDES LEVEL 157 MG/DL (<150); VALPROIC ACID (DEPAKOTE) 89.2 UG/ML (50.0-100.0)
[2021-06-30 15:54] LABS: PTH INTACT 22.5 PG/ML (18.5-88.0); TOTAL 25(OH) VITAMIN D 38.2 NG/ML (30.0-100.0)
== END ==
LOC: M PLALAB 13:41
PROVIDERS: ATTEND Physician Assistant Medical
DX: R79.89 Other specified abnormal findings of blood chemistry (principal)

== ENCOUNTER → 2021-12-05 | Outpatient (CLI) | payer MEDICAID ==
[2021-12-05 19:05] LABS: CALCIUM LEVEL 8.9 MG/DL (8.5-10.1); CHOLESTEROL RISK RATIO 5.138 (<5)
[2021-12-05 19:32] LABS: HEMOGLOBIN A1c 5.6 %
[2021-12-05 20:14] LABS: PTH INTACT 26.8 PG/ML (18.5-88.0); TOTAL 25(OH) VITAMIN D 39.6 NG/ML (30.0-100.0)
== END ==
LOC: M PLALAB 15:17
PROVIDERS: ATTEND Physician Assistant Medical
DX: J45.20 Mild intermittent asthma, uncomplicated (principal); E78.6 Lipoprotein deficiency

== ENCOUNTER → 2021-12-16 | Outpatient (CLI) | payer MEDICAID ==
[2021-12-16 08:39] LABS: ALBUMIN 3.5 GM/DL (3.2-5.2); ALT/SGPT 34 U/L (12-78); BILIRUBIN,TOTAL 0.2 MG/DL (0.2-1.0); BLOOD UREA NITROGEN 18 MG/DL (7-18); CALCIUM LEVEL 8.7 MG/DL (8.5-10.1); CARBON DIOXIDE LEVEL 25 MEQ/L (21-32); CHLORIDE LEVEL 108 MEQ/L (98-107); CREATININE FOR GFR 0.71 MG/DL (0.70-1.30); GLOMERULAR FILTRATION RATE > 60.0 (>60); GLUCOSE, FASTING 92 MG/DL (70-100); POTASSIUM SERUM 4.2 MEQ/L (3.5-5.1); SODIUM LEVEL 138 MEQ/L (136-145); TOTAL PROTEIN 6.9 GM/DL (6.4-8.2); VALPROIC ACID (DEPAKOTE) 98.5 UG/ML (50.0-100.0)
== END ==
LOC: M LAB 07:26
PROVIDERS: ATTEND Nurse Practitioner Family
DX: G40.919 Epilepsy, unspecified, intractable, without status epilepticus (principal)

== ENCOUNTER → 2022-07-05 | Outpatient (CLI) | payer MEDICAID ==
[~2022-07-05] MED LIST changes: -BENZ-52 PO; +BENZ1TAB5 PO
[2022-07-05 09:20] LABS: ALBUMIN 3.7 G/DL (3.2-5.2); ALKALINE PHOSPHATASE 45 U/L (46-116); ALT/SGPT 23 U/L (7.0-40); AST/SGOT 42 U/L (<34); BILIRUBIN,TOTAL 0.3 MG/DL (0.3-1.2); BLOOD UREA NITROGEN 19 MG/DL (9-23); CALCIUM LEVEL 8.3 MG/DL (8.5-10.1); CARBON DIOXIDE LEVEL 25 MMOL/L (20-31); CHLORIDE LEVEL 105 MMOL/L (98-107); CREATININE FOR GFR 0.74 MG/DL (0.70-1.30); GLOMERULAR FILTRATION RATE > 60.0 (>60); GLUCOSE, FASTING 93 MG/DL (60-100); POTASSIUM SERUM 4.9 MMOL/L (3.5-5.1); SODIUM LEVEL 138 MMOL/L (136-145)
== END ==
LOC: M LAB 08:08
PROVIDERS: ATTEND Nurse Practitioner
DX: G40.919 Epilepsy, unspecified, intractable, without status epilepticus (principal)

== ENCOUNTER → 2022-08-04 | Outpatient (CLI) | payer MEDICAID | LOC: M RAD 07:12 | PROVIDERS: ATTEND Physician Assistant Medical | DX: R79.89 Other specified abnormal findings of blood chemistry (principal); K76.0 Fatty (change of) liver, not elsewhere classified ==

== ENCOUNTER → 2022-08-08 | Outpatient (CLI) | payer MEDICAID ==
[2022-08-08 16:27] LABS: ALBUMIN 3.7 G/DL (3.2-5.2); ALKALINE PHOSPHATASE 45 U/L (46-116); ALT/SGPT 27 U/L (7.0-40); AST/SGOT 15 U/L (<34); BILIRUBIN,DIRECT 0.1 MG/DL (<0.4); BILIRUBIN,TOTAL 0.3 MG/DL (0.3-1.2); TOTAL PROTEIN 6.7 G/DL (5.7-8.2)
[2022-08-08 16:33] LABS: INR 0.96
[2022-08-08 16:34] LABS: PARTIAL THROMBOPLASTIN TIME 29.4 SECONDS (24.8-34.2)
[2022-08-08 16:35] LABS: HEPATITIS B SURFACE ANTIBODY NEGATIVE (POSITIVE)
[2022-08-08 16:47] LABS: HEPATITIS B SURFACE ANTIGEN NEGATIVE (NEGATIVE)
[2022-08-08 17:07] LABS: HEPATITIS C VIRUS ABY INDEX 0.1 INDEX (<0.8)
== END ==
LOC: M WUC 13:24
PROVIDERS: ATTEND Physician Assistant Medical
DX: R79.89 Other specified abnormal findings of blood chemistry (principal)

== ENCOUNTER → 2023-07-04 | Outpatient (CLI) | payer MEDICAID ==
[~2023-07-04] MED LIST changes: -RISP-10 PO; +RISP3TAB77 PO
[2023-07-04 14:53] LABS: BASO % 0.5 % (0.0-1.0); EOS # 0.1 10^3/uL (0.0-0.5); HEMATOCRIT 41.1 % (42.0-52.0); LYMPH # 1.8 10^3/uL (1.5-5.0); LYMPH % 29.4 % (24.0-44.0); MEAN CORPUSCULAR HEMOGLOBIN 32.3 pg (27.0-33.0); MEAN CORPUSCULAR HGB CONC 34.1 g/dl (32.0-36.5); MEAN CORPUSCULAR VOLUME 94.7 fl (80.0-96.0); MONO # 0.5 10^3/uL (0.0-0.8); MONO % 8.6 % (2.0-8.0); NEUTROPHILS # 3.7 10^3/uL (1.5-8.5); NEUTROPHILS % 60.3 % (36.0-66.0); PLATELET COUNT, AUTOMATED 175 10^3/uL (150-450); RED BLOOD COUNT 4.34 10^6/uL (4.30-6.10); WHITE BLOOD COUNT 6.2 10^3/uL (4.0-10.0)
[2023-07-04 15:23] LABS: ALBUMIN 3.4 G/DL (3.2-5.2); ALKALINE PHOSPHATASE 45 U/L (46-116); ALT/SGPT 18 U/L (7.0-40); AST/SGOT < 8 U/L (<34); BILIRUBIN,TOTAL 0.2 MG/DL (0.3-1.2); BLOOD UREA NITROGEN 23 MG/DL (9-23); CALCIUM LEVEL 8.9 MG/DL (8.5-10.1); CARBON DIOXIDE LEVEL 26 MMOL/L (20-31); CHLORIDE LEVEL 105 MMOL/L (98-107); CREATININE FOR GFR 0.68 MG/DL (0.70-1.30); GLOMERULAR FILTRATION RATE > 60.0 (>60); GLUCOSE, FASTING 112 MG/DL (60-100); POTASSIUM SERUM 3.9 MMOL/L (3.5-5.1); SODIUM LEVEL 139 MMOL/L (136-145); TOTAL PROTEIN 6.9 G/DL (5.7-8.2)
== END ==
LOC: M WUC 09:02
PROVIDERS: ATTEND Psychiatry & Neurology Neurology
DX: G40.909 Epilepsy, unspecified, not intractable, without status epilepticus (principal)

== ENCOUNTER → 2023-07-04 | Outpatient (CLI) | payer MEDICAID ==
[2023-07-04 14:59] LABS: BASO % 0.5 % (0.0-1.0); EOS # 0.1 10^3/uL (0.0-0.5); HEMATOCRIT 41.9 % (42.0-52.0); HEMOGLOBIN 14.1 g/dl (13.5-17.5); LYMPH # 1.8 10^3/uL (1.5-5.0); LYMPH % 28.6 % (24.0-44.0); MEAN CORPUSCULAR HEMOGLOBIN 31.8 pg (27.0-33.0); MEAN CORPUSCULAR HGB CONC 33.7 g/dl (32.0-36.5); MEAN CORPUSCULAR VOLUME 94.4 fl (80.0-96.0); MONO # 0.6 10^3/uL (0.0-0.8); MONO % 8.9 % (2.0-8.0); NEUTROPHILS # 3.8 10^3/uL (1.5-8.5); NEUTROPHILS % 60.7 % (36.0-66.0); PLATELET COUNT, AUTOMATED 176 10^3/uL (150-450); RED BLOOD COUNT 4.44 10^6/uL (4.30-6.10); WHITE BLOOD COUNT 6.2 10^3/uL (4.0-10.0)
[2023-07-04 15:17] LABS: HEMOGLOBIN A1c 5.1 % (4.0-6.0)
[2023-07-04 15:23] LABS: VALPROIC ACID (DEPAKOTE) 85.5 UG/ML (50.0-100.0)
[2023-07-04 15:27] LABS: ALBUMIN 3.7 G/DL (3.2-5.2); ALKALINE PHOSPHATASE 48 U/L (46-116); ALT/SGPT 23 U/L (7.0-40); AST/SGOT 11 U/L (<34); BILIRUBIN,TOTAL 0.2 MG/DL (0.3-1.2); BLOOD UREA NITROGEN 21 MG/DL (9-23); CALCIUM LEVEL 8.8 MG/DL (8.5-10.1); CARBON DIOXIDE LEVEL 26 MMOL/L (20-31); CHLORIDE LEVEL 103 MMOL/L (98-107); CREATININE FOR GFR 0.68 MG/DL (0.70-1.30); FERRITIN 98.6 NG/ML (10.5-307.3); GLOMERULAR FILTRATION RATE > 60.0 (>60); GLUCOSE, FASTING 111 MG/DL (60-100); IRON (FE) 112 UG/DL (65-175); POTASSIUM SERUM 3.9 MMOL/L (3.5-5.1); SODIUM LEVEL 136 MMOL/L (136-145)
== END ==
LOC: M WUC 09:04
PROVIDERS: ATTEND Physician Assistant Medical
DX: Z00.00 Encounter for general adult medical examination without abnormal findings (principal); R71.0 Precipitous drop in hematocrit

== ENCOUNTER → 2023-08-29 | Outpatient (CLI) | payer MEDICAID | LOC: M RAD 07:04 | PROVIDERS: ATTEND Physician Assistant Medical | DX: K76.0 Fatty (change of) liver, not elsewhere classified (principal) ==

== ENCOUNTER → 2024-01-15 | Outpatient (CLI) | payer MEDICAID ==
[2024-01-15 12:39] LABS: BASO % 0.5 % (0.0-1.0); EOS # 0.2 10^3/uL (0.0-0.5); EOS % 3.3 % (0.0-3.0); HEMATOCRIT 37.9 % (42.0-52.0); HEMOGLOBIN 13.2 g/dl (13.5-17.5); LYMPH # 2.2 10^3/uL (1.5-5.0); LYMPH % 39.2 % (24.0-44.0); MEAN CORPUSCULAR HEMOGLOBIN 32.3 pg (27.0-33.0); MEAN CORPUSCULAR HGB CONC 34.8 g/dl (32.0-36.5); MEAN CORPUSCULAR VOLUME 92.7 fl (80.0-96.0); MONO # 0.8 10^3/uL (0.0-0.8); MONO % 13.2 % (2.0-8.0); NEUTROPHILS # 2.5 10^3/uL (1.5-8.5); NEUTROPHILS % 43.4 % (36.0-66.0); PLATELET COUNT, AUTOMATED 177 10^3/uL (150-450); RED BLOOD COUNT 4.09 10^6/uL (4.30-6.10); WHITE BLOOD COUNT 5.7 10^3/uL (4.0-10.0)
[2024-01-15 12:57] LABS: HEMOGLOBIN A1c 5.3 % (4.0-6.0)
[2024-01-15 13:06] LABS: ALBUMIN 3.5 G/DL (3.2-5.2); ALKALINE PHOSPHATASE 46 U/L (40-129); ALT/SGPT 20 U/L (7.0-40); AST/SGOT 10 U/L (<34); BILIRUBIN,TOTAL 0.3 MG/DL (0.3-1.2); BLOOD UREA NITROGEN 17 MG/DL (9-23); CARBON DIOXIDE LEVEL 26 MMOL/L (20-31); CHLORIDE LEVEL 105 MMOL/L (98-107); CREATININE FOR GFR 0.58 MG/DL (0.70-1.30); GLOMERULAR FILTRATION RATE > 60.0 (>60); GLUCOSE, FASTING 102 MG/DL (60-100); POTASSIUM SERUM 3.9 MMOL/L (3.5-5.1); SODIUM LEVEL 138 MMOL/L (136-145); TOTAL PROTEIN 7.1 G/DL (5.7-8.2)
== END ==
LOC: M WUC 09:50
PROVIDERS: ATTEND Physician Assistant Medical
DX: K76.0 Fatty (change of) liver, not elsewhere classified (principal); R73.01 Impaired fasting glucose